=== PATIENT | male | born 1955 | race Caucasian/White ===

== ENCOUNTER 2020-08-12 07:31 | Outpatient (REF) | payer MEDICARE, MEDICAID, SELFPAY ==
[2020-08-12 11:06] LABS: MANUAL DIFF FLAG NO
[2020-08-12 11:43] LABS: Basophils Absolute Auto 0.1 X10*3/uL (0.0-0.2); Eosinophils Absolute Auto 0.3 X10*3/uL (0.0-0.4); Eosinophils Percent Auto 4.1 % (0-4); Hematocrit 48.5 % (42-52); Hemoglobin 15.7 g/dl (14.0-18.0); Imm Gran Abs Auto 0.03 X10*3/uL (0.00-0.03); Imm Gran Pct Auto 0.4 % (0.0-0.4); Lymphocytes Absolute Auto 1.3 X10*3/uL (1.2-4.9); Lymphocytes Percent Auto 18.9 % (20-40); Mean Corpuscular HGB Conc 32.4 g/dl (31.0-36.0); Mean Corpuscular Hemoglobin 29.7 pg (27.0-33.0); Mean Corpuscular Volume 91.7 fL (80-98); Monocytes Absolute Auto 0.7 X10*3/uL (0.1-1.2); Neutrophils Absolute Auto 4.5 X10*3/uL (2.0-8.3); Neutrophils Percent Auto 65.6 % (45-73); Platelet Count 182 X10*3/uL (160-400); Red Blood Count 5.29 X10*6/uL (4.60-5.80); Red Cell Distribution Width 13.5 % (11.0-16.0); White Blood Count 6.9 X10*3/uL (4.8-10.8)
[2020-08-12 12:20] LABS: Prostate Specific Antigen 0.49 ng/mL (<0.05-4.0); Vitamin D 25-OH Total 24.4 ng/mL (>30)
[2020-08-12 12:24] LABS: Alanine Aminotransferase 20 U/L (0-40); Albumin Level 4.5 g/dL (3.5-5.0); Alkaline Phosphatase 63 U/L (39-117); Anion Gap 12 (12-20); Aspartate Amino Transferase 25 U/L (5-37); Bilirubin Total 0.9 mg/dL (0.0-1.0); Blood Urea Nitrogen 23 mg/dL (9-16); Calcium 9.3 mg/dL (8.4-10.2); Carbon Dioxide 27 mmol/L (22-29); Chloride 106 mmol/L (96-108); Cholesterol 235 mg/dL; Estimated Glomerular Filt Rate > 60; Glucose Fasting 80 mg/dL (60-99); HDL Cholesterol 39 mg/dL; LDL Cholesterol Calculated 159 mg/dl; Potassium 4.4 mmol/L (3.3-5.1); Sodium 141 mmol/L (135-145); Triglycerides 186 mg/dL
== END 2020-08-12 07:32 | disposition home or self-care (01) ==
LOC: HO.MANLDS 07:31
PROVIDERS: PCP Internal Medicine; Visit Provider Internal Medicine
DX: Z00.00 Encounter for general adult medical examination without abnormal findings (principal); E55.9 Vitamin D deficiency, unspecified; Z12.5 Encounter for screening for malignant neoplasm of prostate
CPT/HCPCS: 36415; 80053; 80061; 82306; 84153; 85025

== ENCOUNTER 2021-01-10 12:10 | Outpatient (REF) | payer MEDICARE, MEDICAID, SELFPAY ==
[2021-01-10 16:47] LABS: MANUAL DIFF FLAG NO
[2021-01-10 16:53] LABS: Basophils Absolute Auto 0.1 X10*3/uL (0.0-0.2); Basophils Percent Auto 1.1 % (0-2); Eosinophils Absolute Auto 0.2 X10*3/uL (0.0-0.4); Eosinophils Percent Auto 3.2 % (0-4); Hemoglobin 16.3 g/dl (14.0-18.0); Imm Gran Abs Auto 0.03 X10*3/uL (0.00-0.03); Imm Gran Pct Auto 0.5 % (0.0-0.4); Lymphocytes Absolute Auto 1.5 X10*3/uL (1.2-4.9); Lymphocytes Percent Auto 22.3 % (20-40); Mean Corpuscular HGB Conc 32.6 g/dl (31.0-36.0); Mean Corpuscular Hemoglobin 29.4 pg (27.0-33.0); Mean Corpuscular Volume 90.3 fL (80-98); Mean Platelet Volume 13.1 fL (9.4-12.4); Monocytes Absolute Auto 0.8 X10*3/uL (0.1-1.2); Monocytes Percent Auto 11.6 % (2-11); Neutrophils Percent Auto 61.3 % (45-73); Platelet Count 177 X10*3/uL (160-400); Red Blood Count 5.54 X10*6/uL (4.60-5.80); Red Cell Distribution Width 13.3 % (11.0-16.0); White Blood Count 6.5 X10*3/uL (4.8-10.8)
[2021-01-10 17:00] LABS: Alanine Aminotransferase 19 U/L (0-40); Albumin Level 4.7 g/dL (3.5-5.0); Alkaline Phosphatase 63 U/L (39-117); Amylase 211 U/L (28-100); Anion Gap 16 (12-20); Aspartate Amino Transferase 26 U/L (5-37); Bilirubin Total 0.7 mg/dL (0.0-1.0); Blood Urea Nitrogen 15 mg/dL (9-16); C Reactive Protein 0.09 mg/dL (< or = 0.50); Calcium 9.8 mg/dL (8.4-10.2); Carbon Dioxide 23 mmol/L (22-29); Chloride 108 mmol/L (96-108); Estimated Glomerular Filt Rate > 60; Glucose Random 83 mg/dL (60-115); Iron 176 mcg/dL (45-160); Lipase 125 U/L (8-78); Percent Iron Saturation 47 % (15-50); Potassium 4.5 mmol/L (3.3-5.1); Sodium 142 mmol/L (135-145); Total Iron Binding Capacity 378 mcg/dL (228-428); Total Protein 7.3 g/dL (6.5-8.0); Unsaturated Iron Binding 202 ug/dL
[2021-01-10 17:03] LABS: Estimated Average Glucose 114 mg/dL; Hemoglobin A1c % 5.6 %
[2021-01-10 17:20] LABS: Ferritin 89 ng/mL (20-250)
[2021-01-10 18:08] LABS: Erythrocyte Sedimentation Rate 2 MM/HR (0-15)
== END 2021-01-10 12:11 | disposition home or self-care (01) ==
LOC: HO.MANLDS 12:10
PROVIDERS: PCP Internal Medicine; Visit Provider Physician Assistant
DX: R19.7 Diarrhea, unspecified (principal)
CPT/HCPCS: 36415; 80053; 82150; 82728; 83036; 83540; 83690; 85025; 85652; 86140

== ENCOUNTER 2022-09-14 09:06 | Outpatient (REF) | payer MEDICARE, MEDICAID, SELFPAY ==
[2022-09-14 12:10] LABS: Hematocrit 47.6 % (42.0-52.0); Hemoglobin 15.6 g/dl (14.0-18.0); Mean Corpuscular HGB Conc 32.8 g/dl (31.0-36.0); Mean Corpuscular Hemoglobin 29.7 pg (27.0-33.0); Mean Corpuscular Volume 90.5 fL (80.0-98.0); Mean Platelet Volume 12.9 fL (9.4-12.4); Platelet Count 181 X10*3/uL (160-400); Red Blood Count 5.26 X10*6/uL (4.60-5.80); Red Cell Distribution Width 13.4 % (11.0-16.0); White Blood Count 5.3 X10*3/uL (4.8-10.8)
[2022-09-14 12:58] LABS: Alanine Aminotransferase 22 U/L (0-40); Albumin Level 4.4 g/dL (3.5-5.0); Alkaline Phosphatase 57 U/L (39-117); Anion Gap 11 (12-20); Aspartate Amino Transferase 26 U/L (5-37); Bilirubin Total 0.9 mg/dL (0.0-1.0); Blood Urea Nitrogen 15 mg/dL (9-16); Calcium 9.1 mg/dL (8.4-10.2); Carbon Dioxide 27 mmol/L (22-29); Chloride 109 mmol/L (96-108); Cholesterol 233 mg/dL; Estimated Glomerular Filt Rate > 60; Glucose Fasting 90 mg/dL (60-99); HDL Cholesterol 38 mg/dL; LDL Cholesterol Calculated 167 mg/dl; Potassium 4.9 mmol/L (3.3-5.1); Sodium 142 mmol/L (135-145); Total Protein 6.6 g/dL (6.5-8.0); Triglycerides 144 mg/dL
[2022-09-14 13:01] LABS: Prostate Specific Antigen 0.87 ng/mL (<0.05-4.0); Thyroid Stimulating Hormone 1.49 uIU/mL (0.32-4.0); Vitamin D 25-OH Total 33.6 ng/mL (>30)
== END 2022-09-14 09:07 | disposition home or self-care (01) ==
LOC: HO.MANLDS 09:06
PROVIDERS: Visit Provider Internal Medicine
DX: Z12.5 Encounter for screening for malignant neoplasm of prostate (principal); E78.00 Pure hypercholesterolemia, unspecified; E03.9 Hypothyroidism, unspecified; E55.9 Vitamin D deficiency, unspecified
CPT/HCPCS: 36415; 80053; 80061; 82306; 84153; 84443; 85027

== ENCOUNTER 2023-09-17 08:03 | Outpatient (REF) | payer MEDICARE, MEDICAID, SELFPAY ==
[2023-09-17 12:54] LABS: MANUAL DIFF FLAG NO
[2023-09-17 13:02] LABS: Basophils Absolute Auto 0.1 X10*3/uL (0.0-0.2); Basophils Percent Auto 1.1 % (0-2); Eosinophils Absolute Auto 0.2 X10*3/uL (0.0-0.4); Eosinophils Percent Auto 4.2 % (0-4); Hematocrit 48.7 % (42.0-52.0); Hemoglobin 15.9 g/dl (14.0-18.0); Imm Gran Abs Auto 0.04 X10*3/uL (0.00-0.03); Imm Gran Pct Auto 0.7 % (0.0-0.4); Lymphocytes Absolute Auto 1.1 X10*3/uL (1.2-4.9); Lymphocytes Percent Auto 19.9 % (20-40); Mean Corpuscular HGB Conc 32.6 g/dl (31.0-36.0); Mean Corpuscular Hemoglobin 29.6 pg (27.0-33.0); Mean Corpuscular Volume 90.5 fL (80.0-98.0); Mean Platelet Volume 12.7 fL (9.4-12.4); Monocytes Absolute Auto 0.6 X10*3/uL (0.1-1.2); Monocytes Percent Auto 10.1 % (2-11); Neutrophils Absolute Auto 3.5 x10*3/uL (2.0-8.3); Platelet Count 165 X10*3/uL (160-400); Red Blood Count 5.38 X10*6/uL (4.60-5.80); Red Cell Distribution Width 13.3 % (11.0-16.0); White Blood Count 5.5 X10*3/uL (4.8-10.8)
[2023-09-17 13:16] LABS: Estimated Average Glucose 111 mg/dL; Hemoglobin A1c % 5.5 % (<6.0)
[2023-09-17 13:36] LABS: Prostate Specific Antigen 0.44 ng/mL (<0.05-4.0)
[2023-09-17 13:44] LABS: Alanine Aminotransferase 24 U/L (0-40); Albumin Level 4.4 g/dL (3.5-5.0); Alkaline Phosphatase 54 U/L (39-117); Anion Gap 11 (12-20); Aspartate Amino Transferase 29 U/L (5-37); Bilirubin Total 0.7 mg/dL (0.0-1.0); Blood Urea Nitrogen 17 mg/dL (9-16); Calcium 9.3 mg/dL (8.4-10.2); Carbon Dioxide 27 mmol/L (22-29); Chloride 109 mmol/L (96-108); Cholesterol 216 mg/dL (<200); Estimated Glomerular Filt Rate > 60; Free T4 (Free Thyroxine) 1.04 ng/dL (0.71-1.85); Glucose Random 81 mg/dL (60-115); HDL Cholesterol 38 mg/dL (>40); LDL Cholesterol Calculated 147 mg/dL (<100); Potassium 4.4 mmol/L (3.3-5.1); Sodium 143 mmol/L (135-145); Thyroid Stimulating Hormone 2.26 uIU/mL (0.32-4.0); Total Protein 7.2 g/dL (6.5-8.0); Triglycerides 158 mg/dL (<150)
== END 2023-09-17 08:04 | disposition home or self-care (01) ==
LOC: HO.MANLDS 08:03
PROVIDERS: Visit Provider Internal Medicine
DX: Z00.00 Encounter for general adult medical examination without abnormal findings (principal); Z12.5 Encounter for screening for malignant neoplasm of prostate; E78.00 Pure hypercholesterolemia, unspecified; E03.9 Hypothyroidism, unspecified; E88.810 Metabolic syndrome
CPT/HCPCS: 36415; 80053; 80061; 83036; 84153; 84439; 84443; 85025

== ENCOUNTER 2024-09-14 08:24 | Outpatient (REF) | payer MEDICARE, MEDICAID, SELFPAY ==
[2024-09-14 14:07] LABS: Estimated Average Glucose 117 mg/dL; Hemoglobin A1C 151.3441 umol/L; Hemoglobin A1c % 5.7 % (<6.0)
[2024-09-14 14:19] LABS: Alanine Aminotransferase 30 U/L (0-40); Albumin Level 4.2 g/dL (3.5-5.0); Alkaline Phosphatase 52 U/L (39-117); Anion Gap 10 (12-20); Aspartate Amino Transferase 28 U/L (5-37); Bilirubin Total 0.7 mg/dL (0.0-1.0); Blood Urea Nitrogen 16 mg/dL (9-16); Calcium 8.8 mg/dL (8.4-10.2); Carbon Dioxide 27 mmol/L (22-29); Chloride 109 mmol/L (96-108); Cholesterol 205 mg/dL (<200); Estimated Glomerular Filt Rate > 60; Glucose Random 80 mg/dL (60-115); HDL Cholesterol 34 mg/dL (>40); LDL Cholesterol Calculated 129 mg/dL (<100); Potassium 4.1 mmol/L (3.3-5.1); Sodium 142 mmol/L (135-145); Total Protein 6.7 g/dL (6.5-8.0); Triglycerides 210 mg/dL (<150)
[2024-09-14 15:04] LABS: Thyroid Stimulating Hormone 2.76 uIU/mL (0.32-4.0)
[2024-09-14 15:38] LABS: T4 Thyroxine 7.6 ug/dL (4.5-12.0)
[2024-09-14 18:43] LABS: MANUAL DIFF FLAG NO
[2024-09-14 18:47] LABS: Basophils Absolute Auto 0.1 X10*3/uL (0.0-0.2); Basophils Percent Auto 0.9 % (0-2); Eosinophils Absolute Auto 0.2 X10*3/uL (0.0-0.4); Eosinophils Percent Auto 3.2 % (0-4); Hematocrit 46.5 % (42.0-52.0); Hemoglobin 14.9 g/dl (14.0-18.0); Imm Gran Abs Auto 0.03 X10*3/uL (0.00-0.03); Imm Gran Pct Auto 0.5 % (0.0-0.4); Lymphocytes Absolute Auto 1.2 X10*3/uL (1.2-4.9); Lymphocytes Percent Auto 21.8 % (20-40); Mean Corpuscular Hemoglobin 29.1 pg (27.0-33.0); Mean Corpuscular Volume 90.8 fL (80.0-98.0); Mean Platelet Volume 12.7 fL (9.4-12.4); Monocytes Absolute Auto 0.6 X10*3/uL (0.1-1.2); Monocytes Percent Auto 10.3 % (2-11); Neutrophils Absolute Auto 3.6 x10*3/uL (2.0-8.3); Neutrophils Percent Auto 63.3 % (45-73); Platelet Count 179 X10*3/uL (160-400); Red Blood Count 5.12 X10*6/uL (4.60-5.80); Red Cell Distribution Width 13.6 % (11.0-16.0); White Blood Count 5.7 X10*3/uL (4.8-10.8)
== END 2024-09-14 08:25 | disposition home or self-care (01) ==
LOC: HO.MANLDS 08:24
PROVIDERS: Visit Provider Internal Medicine
DX: Z00.00 Encounter for general adult medical examination without abnormal findings (principal); E03.9 Hypothyroidism, unspecified; Z13.6 Encounter for screening for cardiovascular disorders; Z12.11 Encounter for screening for malignant neoplasm of colon; Z13.1 Encounter for screening for diabetes mellitus
CPT/HCPCS: 36415; 80053; 80061; 83036; 84436; 84443; 85025

== ENCOUNTER 2025-05-12 10:23 | Outpatient (REF) | payer MEDICARE, MEDICAID, SELFPAY ==
--- OUTSIDE RECORDS SUMMARY | 2025-05-12 12:19 | XMS_ITS | Encounter Summary ---
Author Organization [facility] Address [address] [place] [address] Phone Care Team Providers Care Chief Information Security Officer Name Role Phone Deuce Aranda DO Primary Care Provider [phone] Encounter Details Date Type Department Care Team (Late st Contact Info) Description 04/25/2021 Procedure Pass [facility] Endoscopy Admitting Dept Virtual Department [address] [place] [address] Social History Tobacco Use Types Packs/Day Years Used Date Smoking Tobacco: Never Smokeless Tobacco: Never Alcohol Use Standard Drinks/Week Comments Yes 1 (1 standard drink = 0.6 oz pur e alcohol) social occ Sex and Gender Information Value Date Recorded Sex Assigned at Male 11/14/2019 12:39 PM EDT Legal Sex Male 9:53 PM EDT Gender Identity Male 11/14/2019 12:39 PM EDT Sexual Orientation Straight 11/14/2019 12 :39 PM EDT documented as of this encounter Plan of Treatment Not on file documented as of this encounter Visit Diagnoses Not on filedocumented in this encounter Care Teams Chief Information Security Officer Relationship Specialty Start Date End Date Deuce Aranda DO PCP - General Internal Medicine 08/29/17 documented as of this encounter Additional Source Comments The information contained in this document represents components of the legal health record. It is not the complete legal health record.[facility]
--- OUTSIDE RECORDS SUMMARY | 2025-05-12 12:19 | XMS_ITS | Encounter Summary ---
Author Organization [facility] Address [address] [place] [address] Phone Care Team Providers Care Nuclear Process Engineer Name Role Phone Deuce Aranda DO Primary Care Provider [phone] Deuce Aranda DO Unavailable Encounter Details Date Type Department Care Team (Late st Contact Info) Description 11/20/[address] [facility] [address] [place] [id number] Social History Tobacco Use Types Packs/Day Years [...] on filedocumented in this encounter Care Teams Nuclear Process Engineer Relationship Specialty Start Date End Date Deuce Aranda DO [email or web address] PCP - General Internal Medicine 08/29/17 Deuce Aranda DO [address] [place] [address] [email or web address] Insurance Assigned Provider 11/21/19 11/20/20 documented as of this encounter Additional Source Comments The information contained in this document represents components of the legal health record. It is not the complete legal health record.[facility]
--- OUTSIDE RECORDS SUMMARY | 2025-05-12 12:19 | XMS_ITS | Encounter Summary ---
Author Organization [facility] Address [address] [place] [address] Phone Care Team Providers Care Telecasting Technician Name Role Phone Deuce Aranda Primary Care Provider [phone] JassiDeuce sneed Unavailable Encounter Details Date Type Department Care Team (Late st Contact Info) Description 08/29/2017 Ancillary Orders [facility], X-Ray - [facility] [address] [place] [address] Lela Schultz, COMIC BOOK DESIGNER [address] [place] [address] [email or web address] Pain in both lower extremities Social History Tobacco Use Types Packs/Day Years Used Date Smoking Tobacco: Never Assessed Sex and Gender Information Value Date Recorded Sex Assigned at Male 11/14/2019 12:39 PM EDT Legal Sex Male 9:53 PM EDT Gender Identity Male 11/14/2019 12:39 PM EDT Sexual Orientation Straight 11/14/2019 12 :39 PM EDT documented as of this encounter Plan of Treatment Not on file documented as of this encounter Results * XR LUMBOSACRAL SPINE 4 OR MORE VIEWS (08/29/2017 9:03 AM EDT) Anatomical Region Laterality Modality L-spine Radiographic Aurea ging 08/29/2017 9:17 AM EDT Impressions 08/29/2017 9:24 AM EDT Chronic bilateral L5 spondylolysis with progressive anterolisthesis of L5 relative to both L4 and S1 since 2007. Slightly progressive retrolisthesis of L1 relative to L2. No acute bony changes. POS [id number] Narrative 08/29/2017 9:24 AM EDT 7 views. Compared to 01/12/2008 and 01/19/2008. Chronic bilateral L5 spondylolysis and about 13 mm of anterolisthesis has progressed from about 10 mm in 2008. About 5 mm of retrolisthesis of L4 on L5 is also increased as L5 moves forward from about 2 mm in 2008 now about 5 mm. 4-5 mm of retrolisthesis of L1 on L2 has increased from about 3 mm. The other vertebral bodies are well-aligned. Severe narrowing of the L1-2 and L5-S1 discs minimally progressed if changed at all. Mild narrowing of all the other disks minimally progressed. No compression fracture or other bony injuries No evidence of metastatic disease Procedure Note Codey Vaughn MD - 08/29/2017 7 views. Compared to 01/12/2008 and 01/19/2008. Chronic bilateral L5 spondylolysis and about 13 mm of anterolisthesis hasprogressed from about 10 mm in 2008. About 5 mm of retrolisthesis of L4 on L5 is also increased as L5 movesforward from about 2 mm in 2008 now about 5 mm. 4-5 mm of retrolisthesis of L1 on L2 has increased from about 3 mm. The other vertebral bodies are well-aligned. Severe narrowing of the L1-2 and L5-S1 discs minimally progressed ifchanged at all. Mild narrowing of all the other disks minimally progressed. No compression fracture or other bony injuries No evidence of metastatic disease IMPRESSION: Chronic bilateral L5 spondylolysis with progressive anterolisthesis of [id number] to both L4 and S1 since 2007. Slightly progressive retrolisthesisof L1 relative to L2. No acute bony changes. POS [id number] us Lela Schultz COMIC BOOK DESIGNER IMG XR SPINE Final Resul t documented in this encounter Visit Diagnoses Diagnosis Pain in both lower extremities Pain in both lower extremities documented in this encounter Care Teams Telecasting Technician Relationship Specialty Start Date End Date Deuce Aranda DO [email or web address] PCP - General Internal Medicine 08/29/17 Deuce Aranda DO [address] [place] [id number] [email or web address] Insurance Assigned Provider 11/21/19 11/20/20 documented as of this encounter Additional Source Comments The information contained in this document represents components of the legal health record. It is not the complete legal health record.[facility]
--- OUTSIDE RECORDS SUMMARY | 2025-05-12 12:19 | XMS_ITS | Encounter Summary ---
Author Organization [facility] Address [address] [place] [address] Phone Care Team Providers Care Flight Engineer Performance Qualified Name Role Phone Deuce Aranda DO Primary Care Provider [phone] Encounter Details Date Type Department Care Team (Late st Contact Info) Description 08/07/2021 Ancillary Orders Virtual Department [address] [place] [address] Deuce Aranda DO [address] [place] [place] [address] [place] [address] [email or web address] Other lesions of median nerve, right upper limb Social History Tobacco Use Types Packs/Day Years [...] as of this encounter Results * XR WRIST 3 OR MORE VIEWS (LEFT) (08/07/2021 9:10 AM EST) Anatomical Region Laterality Modality Wrist Left Computed Radiogr aphy 08/07/2021 9:20 AM EST Impressions 08/07/2021 9:23 AM EST No fracture or dislocation. Narrative 08/07/2021 9:23 AM EST XR WRIST 3 OR MORE VIEWS (LEFT) COMPARISON: Radiographs of the hand on April 03, 2016 FINDINGS: No fracture. Normal alignment. Normal joint spaces. No soft tissue swelling. Procedure Note Dawood Lozano MD - 08/07/2021 XR WRIST 3 OR MORE VIEWS (LEFT) COMPARISON: Radiographs of the hand on April 03, 2016 FINDINGS: No fracture. Normal alignment. Normal joint spaces. No soft tissueswelling. IMPRESSION: No fracture or dislocation. 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 It is not the complete legal health record.[facility]
--- OUTSIDE RECORDS SUMMARY | 2025-05-12 12:19 | XMS_ITS | Encounter Summary ---
Author Organization [facility] Address [address] [facility] [address] [place] [address] Phone Care Team Providers Care Manager Float Name Role Phone Deuce Aranda DO Primary Care Provider [phone] Deuce Aranda DO Unavailable Encounter Details Date Type Department Care Team (Latest Contact Info) Description 03/06/2018 Transcribe Orders [address] [address] Melisa Rubin [place] [address] [place] [address] . [employer] Routine general medical examination at a health care facility (Primary Dx) Social History Tobacco Use Types Packs/Day Years [...] documented as of this encounter Visit Diagnoses Diagnosis Routine general medical examination at a health care facility- Primary documented in this encounter Care Teams Manager Float Relationship Specialty Start Date End Date Deuce Aranda DO [email or web address] PCP - General Internal Medicine 08/29/17 Deuce Aranda DO [address] [place] [phone] [email or web address] Insurance Assigned Provider 11/21/19 11/20/20 documented as of this encounter Additional Source Comments The information contained in this document represents components of the legal health record. It is not the complete legal health record.[facility]
--- OUTSIDE RECORDS SUMMARY | 2025-05-12 12:19 | XMS_ITS | Clinical Summary ---
Author Organization [facility] Address [address] [facility] [address] [place] [address] Phone Care Team Providers Care Out Of School Hours Care Worker Name Role Phone Nancy Reed Primary Care Provider [phone] Allergies Active Allergy Reactions Criticality Noted Date Comments Ezetimibe Myalgia 09/04/2018 Other reaction(s): Myalgias (muscle pain) Atorvastatin Myalgia 09/04/2018 Lvxpugo-Gcn-Wpf Reductase Inhibitors Myalgia 09/04/2018 Other reaction(s): Myalgias (muscle pain) Medications levothyroxine (SYNTHROID, LEVOTHROID) 75 MCG tablet daily. Active melatonin 5 mg Tab 5mg PRN Active multivit-minera ls/ferrous fum (MULTI VITAMIN ORAL) Multi Vitamin 1 PO QD Active loratadine (CLARITIN) 10 mg tablet daily. Active magnesium 250 mg Tab Take 250 mg by mouth daily. 11/30/2019 Active rivaroxaban (XARELTO) 20 mg Tab Take 20 mg by mouth daily. 12/04/2019 Active Active Problems Problem Noted Date Diagnosed Date Flank hernia 11/20/2019 Hypothyroidism 09/04/2018 Hypercholesterolemia 09/04/2018 Metabolic syndrome X 09/04/2018 Deep vein thrombosis 09/04/2018 Diverticulitis 09/04/2018 Benign prostate hyperplasia 09/04/2018 Family History Medical History Relation Comments Cardiovascular disease Father COPD Mother Relation Status Comments Father Mother Social History Tobacco Use Types Packs/Day Years Used Date Smoking Tobacco: Never Smokeless Tobacco: Never Alcohol Use Standard Drinks/Week Comments Yes 1 (1 standard drink = 0.6 oz pur e alcohol) social occ Education Answer Date Recorded Are you interested in more education? Not on ava e 10/12/2022 Are you concerned about learning? Not on file 10/12/2022 No 10/12/2022 No 10/12/2022 Digital Access Answer Date Recorded No 11/10/2022 No 11/10/2022 Reliable internet access at home? Not on file 11/10/2022 Device with a working camera? Not on file Sex and Gender Information Value Date Recorded Sex Assigned at Male 11/14/2019 12:39 PM EDT Legal Sex Male 9:53 PM EDT Gender Identity Male 11/14/2019 12:39 PM EDT Sexual Orientation Straight 11/14/2019 12 :39 PM EDT Last Filed Vital Signs Vital Sign Reading Time Taken Comments Blood Pressure 127/80 04/25/2021 9:46 AM EST Pulse 71 04/25/2021 8:08 AM EST Temperature 36.2 C (97.2 F) 04/25/2021 9:32 AM EST Respiratory Rate 14 04/25/2021 9:46 AM EST Oxygen Saturation 94% 04/25/2021 9:46 AM EST Inhaled Oxygen Concentration - - Weight 83.9 kg (185 lb) 09/07/2021 8:06 AM EDT Height 177.8 cm (5' 10 ) 09/07/2021 8:06 AM EDT Body Mass Index 26.54 09/07/2021 8:06 AM EDT Plan of Treatment Health Maintenance Due Date Last Done Comments DEPRESSION SCREENING 1968 COLOGUARD 2001 FIT TEST 2001 FOBT 2001 SIGMOIDOSCOPY 2001 VIRTUAL COLONOSCOPY 2001 PNEUMOCOCCAL VACCINES (50+ years) (1 of 1 - PCV) 2006 TSH LEVEL 04/15/2019 04/15/2018, 08/29/2017 ZOSTER VACCINES (2 of 2) 02/18/2020 12/24/2019, 09/2019 CREATININE LEVEL 11/27/2020 11/28/2019, , 11/25/2019, Additional history exists LIPID PANEL 08/16/2024 08/17/2019, 04/15/2018 INFLUENZA VACCINE (#1) 2025 04/03/2016 COVID-19 VACCINE ( season) 2025 06/13/2021, 10/13/2020, 10/13/2020, Additional history exists Adult Td,Tdap Booster 08/18/2029 08/19/2019, 012 COLONOSCOPY 04/25/2031 04/25/2021 COLORECTAL CANCER SCREENING 04/25/2031 RSV VACCINE (1 - 1-dose 75+ series) 10/04/2031 HEPATITIS C SCREENING Completed 08/17/2019 SMOKING STATUS SCREENING (Once After 26 Yrs) Completed 09/07/2021 HEPATITIS A VACCINES Aged Out No long er eligible based on patient's age to complete this topic HIB VACCINES Aged Out No longer eligi ble based on patient's age to complete this topic MENINGOCOCCAL VACCINES (ACWY) Aged Out No longer eligible based on patient's age to complete this topic MENINGOCOCCAL VACCINES (B) Aged Out N o longer eligible based on patient's age to complete this topic Medical Devices Implanted Type Area Jewelry Manager Device Identifier Shelf Expiration Date Model / Serial / Lot Back Screws Mesh Parietex [id number] 8x12in Optimized Composite Rectangle - [id number] Implanted:Qty: 1 on 11/20/2019 by Johnny Franklin MD at [facility] Left: Abdomen COVIDIEN 04/16/2023 [id number] / / [id number] Procedures Procedure Name Priority Date/Time Associated Diagnosis Comments ENDOSCOPY, COLON 04/25/2021 8:56 AM EST BASIC METABOLIC PANEL (BMP) Routine 11/28/2019 5:18 AM EDT LIPID PANEL Routine 04/15/2018 7:46 AM EDT Pure hypercholesterolemi a Myxedema heart disease TSH WITH REFLEX Routine 04/15/2018 7:46 AM EDT Pure hypercholesterolemi a Myxedema heart disease from Last 3 Months or Most Recently Relevant to Health Maintenance Results * ENDOSCOPY, COLON (04/25/2021 8:56 AM EST) Narrative Transcriptions Jose Roberto Chaudhary MD - 04/25/2021 8:56 AM EST Patient Name: Kolton Dean Attending MD:: JOSE ROBERTO CHAUDHARY MD, Procedure Date: 04/25/2021 8:56 AM Date of : 1955 Age: 65 Admit Type: Outpatient Gender: Male Room: [place] [address] Referring MD: NANCY REED DO Exam Type: Colonoscopy Indications: Chronic diarrhea Medications: Monitored Anesthesia Care Procedure: Informed consent was obtained from the patient after discussion of the indications, limitations, alternatives, benefits, and risks of the procedure. Risks specifically discussed include but are not limited to medication reactions, missed lesions, bleeding, perforation, or the need for emergentsurgery. Throughout the procedure, the patient's bloodpressure, pulse, end-tidal CO2, and oxygen saturations were monitored continuously. The Olympus adult variable colonoscope [id number] #2was introduced through the anus and advanced to thececum, identified by appendiceal orifice and ileocecalvalve. The colonoscopy was performed without difficulty.The patient tolerated the procedure well. The quality of the bowel preparation was excellent. The quality ofthe bowel preparation was evaluated using the BBPS(Martin Bowel Preparation Scale) with scores of: Right Colon= 3, Transverse Colon = 3 and Left Colon = 3 (entire mucosa seen well with no residual staining, small fragments of stool or opaque liquid). The total BBPS score equals 9. Complications: No immediate complications. Estimated blood loss: Minimal. Findings: The perianal and digital rectal examinations were normal. Scattered small and large-mouthed diverticula were found in the sigmoid colon and ascending colon. Internal hemorrhoids were found during retroflexion. The hemorrhoids were mild. Biopsies for histology were taken with a coldforceps from the right colon and left colon for evaluationof microscopic colitis. The exam was otherwise normal throughout theexamined colon. Impression: - Diverticulosis in the sigmoid colon and in the ascending colon. - Internal hemorrhoids. - Biopsies were taken with a cold forceps from the right colon and left colon for evaluation of microscopic colitis. Recommendation: - Discharge patient to home. - Await pathology results. - Repeat colonoscopy in 10 years for screeningpurposes. JOSE ROBERTO CHAUDHARY MD, 04/25/2021 9:28:21 AM This report has been signed electronically. Number of Addenda: 0 Note Initiated On: 04/25/2021 8:56 AM Procedure Code(s): --- Professional --- 17811, Colonoscopy, flexible; with biopsy, single or multiple --- Technical --- 40010, Colonoscopy, flexible; with biopsy, single or multiple Diagnosis Code(s): --- Professional --- K64.8, Other hemorrhoids K52.9, Noninfective gastroenteritis and colitis, unspecified K57.30, Diverticulosis of large intestine without perforation or abscess without bleeding --- Technical --- K64.8, Other hemorrhoids K52.9, Noninfective gastroenteritis and colitis, unspecified K57.30, Diverticulosis of large intestine without perforation or abscess without bleeding CPT copyright 2018 [employer]. All rights reserved. The codes documented in this report are preliminary and upon slag mixer reviewmay be revised to meet current compliance requirements. Procedure Date: 04/25/2021 8:56:42 AM [address] [place] [address] us Nancy A Bigda DO GI PROCEDURE ORDERABLES Final Re sult * (ABNORMAL) Basic metabolic panel (11/28/2019 5:18 AM EDT) SODIUM 140 135 - 145 mmol/L [facility] POTASSIUM 3.9 3.4 - 5.0 mmol/L [facility] CHLORIDE 105 98 - 108 mmol/L [facility] CO2 24 23 - 32 mmol/L [facility] BUN 12 8 - 25 mg/dL [facility] CREATININE 0.91 0.60 - 1.50 mg/dL [facility] GLUCOSE 112(H) 70 - 110 mg/dL [facility] CALCIUM 8.4(L) 8.5 - 10.5 mg/dL [facility] EGFR 89 >59 mL/min/1. 73m2 [facility] Comment:If patient is black, multiply result by 1.159. Estimated glomerular filtration rate calculated using the CKD-EPI equation. ANION GAP 11 3 - 17 mmol/L [facility] Blood 11/28/2019 5:18 AM EDT 11/28/2019 5:30 AM EDT us Chrissy Perdomo GLOBAL RECRUITER LAB BLOOD BKR ORDERAB LES Final Result [address] [address] * (ABNORMAL) TSH with reflex (04/15/2018 7:46 AM EDT) TSH 4.33(H) 0.27 - 4.20 uIU/mL [facility] Blood 04/15/2018 7:46 AM EDT 04/15/2018 8:23 AM EDT us Lela Schultz PLANT WORKER LAB BLOOD BKR ORDERABLES Fi nal Result [facility] [address] [place] [address] * (ABNORMAL) Lipid panel (04/15/2018 7:46 AM EDT) HDL 37 mg/dL [facility] Comment: Interpretation: Risk Level Males Decreased >45 mg/dL Average 40-45 mg/dL Increased <40 mg/dL CHOLESTEROL 223 0 - 240 mg/dL [facility] TRIGLYCERIDES 221(H) 30 - 160 mg/dL [facility] LDL 142(H) 50 - 129 mg/dL [facility] Comment: LDL levels in terms of risk for coronary heart disease: <100 mg/dL: Optimal 100-129 mg/dL: Near or above optimal 130-159 mg/dL: Borderline high 160-189 mg/dL: High >190 mg/dL: Very High CARDIAC RISK RATIO 6.0(H) 3.4 - 5.0 [facility] Blood 04/15/2018 7:46 AM EDT 04/15/2018 8:23 AM EDT us Lela Schultz PLANT WORKER LAB BLOOD BKR ORDERABLES Fi nal Result [facility] [address] [place] [address] from Last 3 Months or Most Recently Relevant to Health Maintenance Insurance MEDICARE PART A & B [facility] MEDICARE PART A & B [place] [facility] [place] Advance Directives For more information, please contact: [phone] (9AM - 5PM [facility], Saturday-Saturday) Documents on File Type Date Recorded Patient Immunologist Expl anation Healthcare Proxy 12/02/2019 * Full Code (Confirmed) (Latest Code Status on File) Date Activated Date Inactivated Comments 11/20/2019 4:16 PM Question Answer Comments Code Status Confirmed With: Patient Code Status Communicated To: Inpatient Attending Care Teams Out Of School Hours Care Worker Relationship Specialty Start Date End Date Nancy Reed DO [email or web address] PCP - General Internal Medicine 08/29/17 Additional Source Comments The information contained in this document represents components of the legal health record. It is not the complete legal health record.[facility]
--- OUTSIDE RECORDS SUMMARY | 2025-05-12 12:19 | XMS_ITS | Data Portability ---
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 MUST MEET 2 OUT OF 3 ELEMENTS: PROBLEMS, DATA OR RISK ELEMENT 1: PROBLEMS ADDRESSED 1 OR MORE CHRONIC ILLNESS WITH EXACERBATION OR 2 OR MORE STABLE CHRONIC ILLNESSES OR 1 UNDIAGNOSED NEW PROBLEM OR 1 ACUTE ILLNESS W/SYMPTOMS OR 1 ACUTE COMPLICATED INJURY ELEMENT 2: DATA MUST MEET 1 OF 3 CATEGORIES CATEGORY 1: REVIEW OF PRIOR EXTERNAL NOTES, REVIEW OF RESULTS, ORDERING OF EACH TEST, ASSESSMENT REQUIRING INDEPENDENT HISTORIAN OR CATEGORY 2: INDEPENDENT INTERPRETATION OF TESTS BY ANOTHER PHYSICIAN OR SPECIALIST OR CATEGORY 3: DISCUSSION OF MGT OR TEST INTERPRETATION W/EXTERNAL PHYSICIAN OR SPECIALIST ELEMENT 3: RISK RISK OF COMPLICATIONS AND/OR MORBIDITY OR MORTALITY OF PATIENT MANAGEMENT PROVIDER MUST THOROUGHLY DOCUMENT EACH ELEMENT THAT IS COVERED Not available 01/16/2022 16:59:04 09/08/2024 09/08/2024 Patient presente d to office today for their Medicare Annual Wellness Visit. Education was provided on healthy nutrition, including a diet rich in fruits and vegetables, minimizing simple carbohydrates, salt, and saturated fats. Encouraged regular cardiovascular exercise such as walking at least 30 minutes daily, 5 times per week. Emphasized preventive health measures and educated pt on fall prevention and community-based lifestyle interventions to help reduce health risks and promote healthy living. Not available 09/08/2024 10:52:31 Plan of Treatment Reminders Order Date Submit Date Provider Last Modified By Organization Details Last Modified Time Details Appointments FOLLOW UP 15 2024 09:45A Malia REED Not available Not available Not available MEDICARE ANNUAL WELLNESS 2025 10:00A M DR REED Not available Not available Not available Lab lipid panel, blood 2024 025 [facility], [address] [place] [address], [id number], 09/15/2024 12:34:13 hemoglobi n, gastroint estinal, stool 2024 025 [facility], [address] [place] [address], [id number], 09/08/2024 11:15:31 TSH + free T4, serum 2024 025 [facility], [address] [place] [address], [id number], 09/15/2024 12:34:13 CBC w/ auto diff 2024 025 [facility], [address] [place] [address], [id number], 09/15/2024 12:34:13 CMP, serum or plasma 2024 025 [facility], [address] [place] [address], [id number], 09/15/2024 12:34:13 noninvasi ve colorecta l cancer DNA + occult blood screening , QL, stool - this was sent in june 20232023 024 [facility], [address], [address], [facility] [place], [address], 09/24/2023 10:07:47 lipid panel, blood 2023 024 [facility], [address] [place] [address], [id number], 09/18/2023 11:19:40 CMP, serum or plasma 2023 024 [facility], [address] [place] [address], [id number], 09/18/2023 11:19:40 CBC 2023 024 [facility], [address] [place] [address], [id number], 09/18/2023 11:19:41 HbA1c (hemoglob in A1c), blood 2023 024 [facility], [address] [place] [address], [id number], 09/03/2023 14:03:08 PSA, serum or plasma 2023 024 [facility], [address] [place] [address], [id number], 09/18/2023 11:19:40 TSH + free T4, serum 2023 024 [facility], [address] [place] [address], [id number], 09/10/2023 08:20:01 Referral dermatolo gist referral 2022 023 [email or web address] 10 Cheryle Montoya MD, [address], [place], [address], 08/22/2022 11:17:05 vascular surgeon referral 2021 022 [email or web address] 10 Richard Collins MD, [address] [place], [address], 01/22/2022 11:14:29 Procedures None recorded. Surgeries None recorded. Imaging None recorded. Medication Orders None recorded. Patient TargetsNo targets recorded. Patient Instructions Encounter Date Encounter Id Patient Instructions Last Modified By Organization Details Last Modified Time 01/16/2022 [id number] hypothyroidism: care instructions Not available 01/16/2022 17:07:56 benign prostatic hyperplasia: care instructions Not available 01/16/2022 17:07:56 09/08/2024 [id number] advance care planning: care instructions Not available 09/08/2024 10:54:24 Discussed and explained advance directives such as standard forms to the patient. Face to face discussion lasted for a duration of _45__ minutes. Not available 09/08/2024 10:56:47 Reason for Referral Vascular Surgeon Referral fo r Chronic deep venous thrombosis of thigh Referring Physician: Deuce Reed, Internal Medicine, Encounter Date: 01/16/2022 Test Conductor Referral for H istory of actinic keratosis Referring Physician: Deuce Reed, Internal Medicine, Encounter Date: 08/21/2022 Results Created Date Observation Date Name Description Value Unit Range Abnormal Flag Note LastModifiedBy Organization Detail LastModifiedTime Result Notes None recorded. Problems Name Problem SNOMED Code Status Onset Date Resolution Date Notes Provider Name and Address Organization Details Recorded Time Divertic ulitis 025655419 Active 2017 Tricia johns [facility] 8 15:05:29 Metaboli c syndrome X 545498170 Active 2017 Tricia johns [facility] 8 15:06:19 Hypothyr oidism 46300442 [facility] 15:06:49 Hypercho lesterol emia 92176464 Active 2017 Lela Schultz NP, S [address] [place] [address], [address], [facility] 8 10:14:14 Benign prostati c hyperpla kari 079174394 Active 2017 Lela Schultz NP, S [address] [place], [address], [facility] 8 11:06:55 Deep venous thrombos is of lower extremit y 165255567 Active 2017 s/p surgery- iliac vein rupture Lela Schultz NP, S [address] [place] [address], [address], [facility] 8 16:46:55 History of male erectile disorder 260039407 Active 2017 Lela Schultz NP, S [address] [place] [address], [address], [facility] 8 10:04:49 Postoper ative hemorrha ge 228568215 Active 2018 Deuce Reed, DO [address] [place] [address], [address], [facility] 9 10:15:09 Rupture of hernia of abdomina l wall 408495686 Active 2018 Deuce Reed, DO [address] [place] [address], [address], [facility] 9 10:32:57 Chronic deep venous thrombos is of thigh 58232531539 9104 Active 2021 Deuce Reed DO [address] [place] [address], [address], [facility] 2 17:00:54 Bilatera l carpal tunnel syndrome 20423990998 627064 Active 2024 Deuce Reed DO [address] [place] [address], [address], [facility] 5 10:56:06 Weakness of bilatera l lower limb Active 2024 Deuce Reed DO [address] [place] [address], [address], [facility] 5 10:07:06 Depresse d mood 912359208 Active 2024 Deuce Reed DO [address] [place] [address], [address], [facility] 5 10:13:42 Sebaceou s cyst of skin 266697594 Active 2024 Deuce Reed DO [address] [place] [address], [address], [facility] 5 10:14:58 Paresthe kari of hand 707667765 Active 2024 Deuce OzzieRoni Reed DO [address] [place] [address], [address], [facility] 5 10:16:53 Problem Notes None recorded. Procedures Surgical History Date Name Laterality Status Provider Name and Address Organization Details Recorded Time 09/24/19 24 Colonoscopy completed Azalia Cary [facility] 04/13/2024 11:35:37 12/05/19 20 Hernia repair w/mesh completed Deuce Reed [address], [address], [facility] 01/16/2022 16:25:47 02/08/20 18 Back Surgery completed Deuce Reed DO [address] [place] [address], [address], [facility] 01/16/2022 16:24:55 Oral surgery procedure completed Lela Schultz NP, S [address] [place] [address], [address], [facility] 01/31/2018 10:41:22 Imaging Results None recorded. Procedure Notes None recorded. Medical Equipment None Reported. Allergies Allergen ID Allergen Name Allergen Category Reaction Reaction Severity Criticality Documentation Date Start Date Code Code System Note Provider Name and Address Organization Details Recorded Time 75404 ezetimibe medicatio n myalgias (muscle pain) Not available Not available 05/12/20252018 98355 8 RxNorm Other react ion(s ): Myalg ias (musc le pain) Not Available [employer] - prod 5 03:23:17 62254 atorvasta tin medicatio n myalgias (muscle pain) Not available Not available 05/12/20252018 49376 RxNorm Not Available [employer] - prod 03:23:17 748 Zetia medicatio n myalgias (muscle pain) Not available Not available 09/11/2017 88565 9 RxNorm Tricia Alas [facility] 8 15:04:16 749 Product containin g 3-hydroxy -3-methyl glutaryl- coenzyme A reductase inhibitor (product) medicatio n myalgias (muscle pain) Not available Not available 09/11/2017 58483 009 SNOMED Tricia johns [facility] 8 15:04:24 750 Lipitor medicatio n myalgias (muscle pain) Not available Not available 09/11/2017 70976 5 RxNorm Tricia johns [place] [facility] 8 15:04:31 Medications Name Sig Start Date Stop Date Status Note LastModified by Organization Details LastModified Time prednisone 10 mg tablet Take 1 tablet every day by oral route as directed for 8 days. 12/03 completed Not Available Not Available Not Available sildenafil 50 mg tablet Take 1 tablet every day by oral route for 90 days. 01/16 completed Not Available Not Available Not Available Claritin 10 mg tablet Take 1 tablet every day by oral route. active Not Available Not Available No t Available fluorouraci l 5 % topical cream APPLY THIN LAYER TOPICALLY TO THE AFFECTED AREA OF SCALP TWICE DAILY FOR 3 WEEKS active Not Available Not Available No t Available levothyroxi ne 75 mcg tablet TAKE 1 TABLET DAILY 2024 active Not Available Not Available Not Avai lable DOK 100 mg capsule TAKE 1 C PO D 07/28 completed Not Available Not Available Not Available levothyroxi ne 50 mcg tablet TAKE 1 TABLET BY MOUTH DAILY 10/22 completed Not Available Not Available Not Available warfarin 5 mg tablet Take 1 tablet daily as directed by you PCP 09/01 completed Not Available Not Available Not Available Baby Aspirin 81 mg chewable tablet Chew 1 tablet every day by oral route. 10/22 completed Not Available Not Available Not Available gabapentin 100 mg capsule TAKE 1 C PO Q 8 HOURS 07/28 completed Not Available Not Available Not Available warfarin 1 mg tablet TAKE 1 TABLET BY MOUTH EVERY DAY DIRECTED 09/01 completed Not Available Not Available Not Available Lovenox 60 mg/0.6 mL subcutaneou s syringe Inject 0.6 mL every day by subcutane ous route for 3 days. 12/03 completed Not Available Not Available Not Available finasteride 5 mg tablet TAKE 1 TABLET BY MOUTH EVERY DAY 04/08 completed Not Available Not Available Not Available oxycodone 5 mg tablet TAKE 1 T PO Q 4 HOURS PRF MODERATE PAIN 01/10 completed Not Available Not Available Not Available Asprin Ec Low Dose 81 mg tablet,bernard yed release Take 1 tablet every day by oral route. active Not Available Not Available No t Available melatonin 5mg PRN 10/22 completed Not Available Not Available Not Available Colace after surgery 12/03 completed Not Available Not Available Not Available nabumetone 500mg once a day if need for back pain 03/10 completed Not Available Not Available Not Available Tylenol PRN active Not Available Not Avail able Not Available gabapentin sort term after surgery 12/03 completed Not Available Not Available Not Available Allergy Relief (cetirizine ) 1 PO QD 04/03 completed Not Available Not Available Not Available glucosamine 375 mg-chondroi t-msm no1 500 mg-C 15 mg-julián 0.5 mg tablet Take 2 tablets every day by oral route. active Not Available Not Available No t Available glucosamine -condroitin -dhpf392 2 tablets daily 07/28 completed Not Available Not Available Not Available Xarelto 10 mg tablet Take 1 tablet every day by oral route. 09/01 completed Not Available Not Available Not Available Xarelto 20 mg tablet TAKE 1 TABLET BY MOUTH DAILY IN THE EVENING FOR 7 DAYS WITH THE EVENING MEAL 09/02 completed Not Available Not Available Not Available Multi Vitamin 1 PO QD active Not Available Not Available Not Available magnesium 200 mg (as magnesium oxide) chewable tablet Take 1 tablet every day by oral route. active Not Available Not Available No t Available Vitals Date Recorded Body height Body mass index (BMI) Body weight Heart rate Oxygen saturation Systolic And Diastolic Provider Name and Address Organization Details Last Updated DateTime 3 175.26 cm 26.7 kg/m2 93032.4 2 g 64 /min 98 % 112/60 mm[Hg] Deuce Reed, DO [address] [place], [address] [place], [place] - [facility] 3 09:30:34 Date Recorded Body height Body mass index (BMI) Body weight Heart rate Oxygen saturation Systolic And Diastolic Provider Name and Address Organization Details Last Updated DateTime 4 175.26 cm 27 kg/m2 18548.4 g 70 /min 97 % 120/80 mm[Hg] Krista Burger [facility] 4 13:27:58 Date Recorded Body height Body mass index (BMI) Body weight Heart rate Oxygen saturation Systolic And Diastolic Provider Name and Address Organization Details Last Updated DateTime 5 175.26 cm 27.6 kg/m2 15709.1 3 g 65 /min 98 % 138/86 mm[Hg] Azalia Cary [facility] 5 10:38:08 Date Recorded Body height Body mass index (BMI) Body weight Heart rate Oxygen saturation Systolic And Diastolic Provider Name and Address Organization Details Last Updated DateTime 2 175.26 cm 27.1 kg/m2 87832.9 2 g 63 /min 98 % 124/68 mm[Hg] Deuce Reed, DO [address] [place], [address], [facility] 2 16:28:55 Date Recorded Body height Body mass index (BMI) Body weight Heart rate Oxygen saturation Systolic And Diastolic Provider Name and Address Organization Details Last Updated DateTime 5 175.26 cm 27.7 kg/m2 20499.9 3 g 73 /min 95 % 138/70 mm[Hg] Enid Guzman [facility] 5 09:43:34 Social History Question Answer Notes LastModified by [employer] Details LastModified Time Tobacco Smoking Status Never Smoker Not Available [facility] 04/19/2020 03:36:23 What Is Your Level Of Caffeine Consumption? Occasional 1 Cup Coffee Per Day [id number] Information not available 04/19/2020 What Was The Date Of Your Most Recent Tobacco Screening? 05/12/2025 [email or web address] Information not available 05/12/2025 Sex: Male Functional Status Question Answer Note LastModified by [employer] Details LastModified Time Do you or have you ever used any other forms of tobacco or nicotine? No Information not available 08/21/2022 What is your level of alcohol consumption? Occasional [id number] Information not available 04/19/2020 What is your exercise level? None PT twice a week [id number] Information not available 04/19/2020 Mental Status None recorded. Family History Relationship Description Onset Age of this Age Resolved Age Notes LastModified by Organization Details LastModified Time Father Disorder of cardiovascul ar system [email or web address] Not available 2024 09:59:25 Mother Chronic obstructive pulmonary disease 83 [email or web address] Not available 2017 10:41:03 Medical History Condition Response Coronary Artery Disease N Gout N Kidney Stones N Blood Diseases N Hyperthyroidism N Blood Transfusion N Hypothyroidism Y Lung Disease N COPD N Defects or Inherited Disease N Difficulty Swallowing N Meniere's disease N Anxiety Disorder N Muscle, Joint, or Bone Problems N Obesity N Arthritis Y Polyps N Mental Disorder N Cancer N Stroke N Varicosities N Bladder or Kidney Problems Y High Cholesterol Y Liver Disease N Fibromyalgia N Headaches Y Kidney Disease N Allergies/Hayfever Y Heart Problems N Hospitalizations N Thyroid Problems Y GI Problems N Eating Disorder N Skin Problems Y Anemia N Constipation Y Mental Illness N Diabetes N Seizures/Epilepsy N Tuberculosis N Congestive Heart Failure (CHF) N Eczema N Abuse/Domestic Violence N Diverticulitis Y Asthma N Reflux/GERD N Hepatitis N Heart Disease N Pulmonary Embolism N Chronic Ear Infections N Hypertension N Chicken Pox Y Autism Spectrum Disorder (ASD) N Immunizations Vaccine Type Date Status Note Provider Nam e and Address Organization Details Recorded Time COVID-19, mRNA, LNP-S, PF, 30 mcg/0.3 mL dose 1 completed Petra Gencarelle [facility] 08/21/2022 09:16:50 COVID-19, mRNA, LNP-S, PF, 30 mcg/0.3 mL dose 1 completed Petra Gencarelle [facility] 08/21/2022 09:16:50 Tdap 0 completed Not Available [facility] 04/25/2021 15:01:20 zoster, unspecified formulation 0 completed Petra Gencarelle [facility] 08/21/2022 09:16:50 Tdap 2 completed Not Available [facility] 04/25/2021 15:01:20 COVID-19, mRNA, LNP-S, PF, 30 mcg/0.3 mL dose completed Petra Romero [facility] 08/21/2022 09:16:50 Past Encounters Encounter ID Performer Location Encounter Start Date Encounter Closed Date Diagnosis/Indication Diagnosis SNOMED-CT Code Diagnosis ICD10 Code Diagnosis IMO Codes Diagnosis Note [id number] Deuce Reed [facility] [address] [place] [address] 09/24/2017 09:16:25 09/24/2017 11:42:10 On examination - skin lesion 201098139 L98.9 Hypercholesterolemia 136 84863 E78.00 labs Jun 2017 ldl 111 Hypothyroidism 75935016 E03.9 levels WNL Venous varices 457533015 I83.92 reviewed Stenosis o f spinal 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 751056072 M99.59 MRI faxed [id number] Deuce Reed [facility] [address] [place] [address] 01/28/2018 10:01:17 01/28/2018 12:18:50 Hypercholesterolemia 34348176 E78.00 Hypothyroidism 44479484 E03.9 Acute low back pain 2788 89022 M54.5 awaiting surgery Benign pro static hyperplasia 884714592 N40.1 Screening procedure 2012 5006 Z13.9 [id number] Deuce Reed [facility] [address] [place] [address] 01/31/2018 10:14:56 01/31/2018 12:34:24 Pre-surgery evaluation 706705833 Z01.818 cleared for surgery Hypercholesterolemia 136 01400 E78.00 reviewed niacin, pt intolerant statins Hypothyroidism 49530555 E03.9 stable, follow Benign pro static hyperplasia 348184555 N40.1 new to genna sánchez [id number] Deuce Reed [facility] [address] [place] [address] 03/10/2018 14:47:52 03/10/2018 17:01:13 Deep venous thrombosis of lower extremity 536170685 I82.402 INR 1.9, continue 6 mg coumadin, recheck Retroperit herron hematoma 534105357 K66.1 follow in office in 1 week Edema of l ower extremity 807410680 R60.0 Active or passive immunization 934214180 Z23 will hold off on flu vaccine for a couple weeks [id number] Deuce Reed [facility] [address] [facility] [address] 03/17/2018 15:49:18 03/17/2018 16:36:24 Hypothyroidism 63862271 E03.9 stable, follow Deep venou s thrombosis of lower extremity 787711326 I82.402 INR 2.0, continue 6 mg coumadin, recheck tomorrow [id number] Deuce Reed [facility] [address] [facility] [address] 03/25/2018 14:22:26 03/25/2018 15:26:39 Deep venous thrombosis of lower extremity 545964491 I82.402 INR 3.2 today- decrease to 5mg mg coumadin, recheck Saturday [id number] Deuce Reed [facility] [address] [facility] [address] 04/08/2018 13:18:47 04/11/2018 08:58:32 Hypercholesterolemia 77254231 E78.00 Hypothyroidism 43927062 E03.9 stable, follow Deep venou s thrombosis of lower extremity 269568417 I82.402 INR 2.0 to alt. 5mg with 6 mg and recheck Saturday Benign pro static hyperplasia 932198640 N40.1 D/C finasterid e On examina tion - skin lesion 987636713 L98.9 [id number] Deuce Reed [facility] [address] [facility] [address] 04/22/2018 09:06:36 04/22/2018 11:28:05 Adult health examination 511167193 Z00.00 main prob is the left leg where he had the clot and this leg aches and is still causing lymphedema of the left leg Active or passive immunization 869817162 Z23 Primary er ectile dysfunction 415267102 N52.9 [id number] Deuce Reed [facility] [address] [facility] [address] 05/06/2018 09:13:56 05/06/2018 15:43:24 Deep venous thrombosis of lower extremity 731887987 I82.402 INR 2.0, continue 5 mg recheck Saturday Hypothyroidism 79916679 E03.9 stable, follow Benign pro static hyperplasia 792639422 N40.1 [place] [id number] Deuce Reed [facility] [address] [facility] [address] 05/27/2018 08:54:18 05/27/2018 13:38:52 History of male erectile disorder 348798483 Z87.438 prn viagra Edema of l ower extremity 934845799 R60.0 continue compressio n stockings and exercise Deep venou s thrombosis of lower extremity 068280068 I82.402 await todays results INR [id number] Deuce Reed [facility] [address] [facility] [address] 06/24/2018 08:52:26 06/24/2018 09:34:04 Deep venous thrombosis of lower extremity 066179851 I82.402 recheck INR 06/27/18 do not wait until 07/04/18 Hypercholesterolemia 136 55327 E78.00 to trial niacin at hs Hypothyroidism 83529211 E03.9 stable, follow History of male erectile disorder 125092151 Z87.438 prn viagra [id number] Deuce Reed [facility] [address] [facility] [address] 08/20/2018 09:03:26 08/20/2018 10:45:37 Hernia of anterior abdominal wall 009359287 K43.9 Deep venou s thrombosis of lower extremity 005896477 I82.402 check INR, if less than 3, will transition to 15 mg xarelto Hypercholesterolemia 136 13265 E78.00 Hypothyroidism 69128394 E03.9 stable, follow Deuce Reed [facility] [address] [facility] [address] 10/22/2018 09:13:18 10/22/2018 11:26:16 Deep venous thrombosis of lower extremity 194251395 I82.402 tolerating xarelto Hypercholesterolemia 136 80664 E78.00 follow Radiology result abnormal 236280116 R93.89 left abdominal wall, keep f/u appts w/speciali sts [id number] Deuce Reed DO [facility] [address] [facility] [address] 04/03/2019 09:49:47 04/03/2019 10:55:43 Deep venous thrombosis of lower extremity 954659645 I82.409 chronicall y on anticoag now for life has collateral s for the blocked iliac vein Hypothyroidism 26665512 E03.9 rechk in tsh Anterior a bdominal wall mass 432816037 R19.09 will need to refer to [facility] [id number] Deuce Reed DO [facility] [address] [facility] [place] [address] 08/07/2019 14:20:30 08/07/2019 15:04:02 Adult health examination 885274076 Z00.01 doing well overall certainly needs a hernia reduction procedure Active or passive immunization 133449569 Z23 Pruritic rash [id number] L 28.2 [id number] Deuce Reed DO [facility] [address] [facility],[place] [address] 12/04/2019 11:10:38 12/04/2019 12:06:11 Deep venous thrombosis of lower extremity [id number] I82.409 chronicall y on anticoag now for life but they told him to stop in the hosp we will revisit this as time goes on for now he is still off the xarelto per the hospital drs recc Hernia of abdominal wall [id number] K43.6 will attempt to remove drain next week if volume is less 20cc daily 52914 Deuce Reed DO [facility] [address] [facility] [address] 12/07/2019 14:36:30 12/07/2019 15:51:16 Postoperative hemorrhage 704008841 M96.830 drain removed without difficulty [id number] Deuce Reed DO [facility] [address] [facility],[place] [address] 08/09/2020 08:44:54 08/09/2020 10:57:14 Active or passive immunization [id number] Z23 covid not obtained yet shingles done last year Adult heal th examination 558980687 Z00.00 doing well overall certainly needs a hernia reduction procedure Vitamin D deficiency 347 09386 E55.9 [place] [address] Deuce Reed [facility] [address] [facility],[place] [address] 01/10/2021 11:33:37 01/10/2021 12:06:44 Diarrhea 85994083 R19.7 will fu with fu diarrhea work up Ulnar nerv e entrapment at elbow 258912514 G56.23 will hold off with referral for now and work on diarrhea work up Memory impairment 960271 006 R41.3 will have GF pay attension and see if it happens more frequently 60362 Deuce Reed [facility] [address] 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 [address] 08/15/2021 08:55:11 08/15/2021 09:42:52 Active or passive immunization 571445491 Z23 covid not obtained yet shingles done last year Adult heal th examination 227659937 Z00.00 doing well overall certainly needs a hernia reduction procedure Hypothyroidism 31908860 E03.9 [place]chk in tsh 41518 Deuce Reed [facility] [address] [facility] [place] [address] 01/16/2022 16:03:42 01/16/2022 17:09:18 Active or passive immunization 679650545 Z23 will consider pneumonia shots Chronic de ep venous thrombosis of thigh 1606525467 67135 I82.5Y9 we will get him referred to a vascular Hypothyroidism 28827528 E03.9 rechk in tsh Deep venou s thrombosis of lower extremity 240249559 I82.409 chronicall y on anticoag now for life but they told him to stop in the hosp we will revisit this as time goes on for now he is still off the xarelto per the hospital drs recc Benign pro static hyperplasia 386066131 N40.1 42932 Deuce Reed, [facility] [address] [facility],[place] [address] 08/21/2022 09:16:30 08/21/2022 11:25:03 Active or passive immunization 716926070 Z23 will consider pneumonia shots Adult heal th examination 248138503 Z00.00 doing well overall certainly needs a hernia reduction procedure Deep venou s thrombosis of lower extremity 848149494 I82.409 he is doing great and is now off the xarelto Advance care planning 71 4177053 Z71.89 utd History of actinic keratosis 2100185831 104 Z87.2 will refer to derm [id number] Deuce Reed, [facility] [address] [facility], [facility] [email or web address] [address] 09/03/2023 13:17:23 09/03/2023 15:24:25 Active or passive immunization 279186855 23 will consider pneumonia shots Adult heal th examination 213801163 Z00.00 doing well overalldis cussed cbd gummies for his arthritis at night will try gino a Hypercholesterolemia 136 03342 E78.00 Hypothyroidism 93523311 E03.9 rechk in tsh Metabolic syndrome X 237 784018 E88.810 Screening for malignant neoplasm of colon 825860442 Z12.11 [id number] Deuce Reed [facility] [address] [facility] [address] 09/08/2024 09:58:52 09/08/2024 12:26:03 Adult health examination 172892925 Z00.00 doing well overalldis cussed cbd gummies for his arthritis at night will try ashwagandh a Screening for cardiovascular system disease 912866555 Z13.6 Screening for malignant neoplasm of colon 641352454 Z12.11 Hypercholesterolemia 136 55287 E78.00 will chk levels Hypothyroidism 62720451 E03.9 rechk in tsh Metabolic syndrome X 237 889267 E88.810 checking lab in detail Bilateral carpal tunnel syndrome 0607739392 6101923 G56.03 Health Concerns Section Related Observation LastModified by Organization Detai ls LastModified Time None Recorded Concern Status LastModified by Organization Details LastModified Time None Recorded Advance Directives Directive None Recorded Payers Insurance Date Sequence Insurance Name Policy Number Policy Fan Covered Member ID Fan Member ID Guarantor Name 09/07/2024 1 [employer] [id number] Kolton Moran [id number] Kolton Moran 05/12/2025 1 [place] [employer] Kolton Moran [id number] Kolton Moran 05/09/2025 2 [place] Kolton Moran [id number] Kolton Moran Notes Date Note Type Note Provider Name and Address Organization Details Recorded Time 01/17/20 22 text/htm l ROS as noted in the HPI here for rechk and is feeling wellno major problemsno cp no sob but does get occ exertional dyspnea up the stairs or puhsin cryptologist in 90 degree heatsleep is fairbowels good no bleeding occ diarrhea no melena reviewed lab in detail as he had stopped the xarelto for 5 days before doing the lab work Deuce Rede, DO [address] [facility], [place], [address], [facility] 01/16/2022 17:08:15 08/22/19 23 text/htm l Annual WellnessReported by PatientSocial/Behavioral HistoryFor diet and nutrition, patient reportshealthy diet. For fracture risk, patient reportsno history of fractures,no recent explained fracture,no sudden unexplained fractures, andno previous musculoskeletal injuries. For physical activity, patient reportsexercises on a regular basis,recent increase in physical activity, andgood physical condition. For additional lifestyle factors, patient reportsno tobacco use,no alcohol intake, andstopped drinking alcohol.Mental Status:For depression risk, patient reportsnever feels sad, empty, or tearful,no loss of interest in activities,no significant changes in weight,no sleep disturbances or insomnia,no agitation,no loss of energy,no feelings of worthlessness or guilt,no thoughts of suicide,no history of depression, andno history of mood disorders.Functional AbilityFor hearing, patient reportsno loss of hearing. For vision, patient reportsno vision problems.now off xareltoROS as noted in the HPI Deuce Reed DO [address] [place] [address], [address], [facility] 08/21/2022 10:08:40 09/03/19 24 text/htm l Annual WellnessReported by PatientSocial/Behavioral HistoryFor diet and nutrition, patient reportshealthy diet. For fracture risk, patient reportsno history of fractures,no recent explained fracture,no sudden unexplained fractures, andno previous musculoskeletal injuries. For physical activity, patient reportsexercises on a regular basis,recent increase in physical activity, andgood physical condition. For additional lifestyle factors, patient reportsno tobacco use,no alcohol intake, andstopped drinking alcohol.Mental Status:For depression risk, patient reportsnever feels sad, empty, or tearful,no loss of interest in activities,no significant changes in weight,no sleep disturbances or insomnia,no agitation,no loss of energy,no feelings of worthlessness or guilt,no thoughts of suicide,no history of depression, andno history of mood disorders.Functional AbilityFor hearing, patient reportsno loss of hearing. For vision, patient reportsno vision problems.ROS as noted in the HPI doing well now off the xarelto and starting asaright arm has been bothering more as of late takes a tylenol pm hs Deuce HorneRoni Reed, DO [address] [place] [address], [address], [facility] 09/03/2023 14:04:46 09/09/19 25 text/htm l Care Management - Acquired HypothyroidismReported by PatientCare ManagementFor medication education, patient reportsunderstands administration,understands effect of concurrent medications,understands missed doses, andunderstands consequences of noncompliance.Interim HistoryFor associated symptoms, patient reportsno abnormal weight gain,no tiredness,no dry skin,no cold intolerance,no constipation,no diarrhea, andno goiter. Care Management - HyperlipidemiaReported by PatientHPIFor control, patient reportsusually well controlled,improving, andat goal. For complications, patient reportsno coronary artery disease,no heart attack,no cardiovascular disease,no pancreatitis, andno stroke. Medicare Annual Wellness VisitReported by PatientSocial/Behavioral HistoryFor diet and nutrition, patient reportshealthy diet. For fracture risk, patient reportsno history of fractures,no recent explained fracture,no sudden unexplained fractures, andno previous musculoskeletal injuries. For physical activity, patient reportsexercises on a regular basis,recent increase in physical activity, andgood physical condition.Mental Status:For depression risk, patient reportsnever feels sad, empty, or tearful,no loss of interest in activities,no significant changes in weight,no sleep disturbances or insomnia,no agitation,no loss of energy,no feelings of worthlessness or guilt,no thoughts of suicide,no history of depression, andno history of mood disorders. For orientation, patient reportsno disorientation to time,no disorientation to date, andno disorientation to place. For concentration and memory, patient reportsno decreased concentrating ability,no memory lapses or loss, anddoes not forget words. For speech/motor difficulties, patient reportsno speech difficulties,no difficulty expressing formulated concepts,no difficulty with fine manipulative tasks,no difficulty writing/copying,no slowed reaction time, anddoes not knock things over when trying to pick them up.Functional AbilityFor hearing, patient reportsno loss of hearing. For vision, patient reportsno vision problems. For activities of daily living, patient reportsable to bathe with limited or no assistance,able to contol urination and bowels,able to dress with limited or no assistance,able to feed self with limited or no assistance,able to get out of chair or bed with limited or no assistance,able to groom with limited or no assistance, andable to toilet with limited or no assistance. For instrumental activities of daily living, patient reportsable to do house work with limited or no assistance,able to grocery shop with limited or no assistance,able to manage medications with limited or no assistance,able to manage money with limited or no assistance,able to prepare meals with limited or no assistance, andable to use the phone with limited or no assistance. For falls risk assessment, patient reportsno frequent falls while walking,no fall in the past year,no fall since last visit, andno dizziness/vertigo. For home safety, patient reportsno unsafe valerie hazzards,no unsafe stairs,no unsafe gas appliances,working smoke/co detectors,wears protective head gear for biking/high velocity,use of seatbelts,practicing 'safer sex',no vision or hearing loss while driving,no fire arms,has hand bars in the bathroom/shower, andgood lighting in the home.ROS as noted in the HPI doing well and is not having any major issues Deuce Reed, DO [address] [facility], [place], [address], [facility] 09/08/2024 11:01:12 05/12/20 25 text/htm l ROS as noted in the HPI has noted onset of pains in both legs and numbness and tingling down both legsrelates that he has fallenno back painhas been ongoing for several months may be more noticeable nowstill active overallfeels he is off balance at times Not Available Not Available Not Available
--- OUTSIDE RECORDS SUMMARY | 2025-05-12 12:19 | XMS_ITS | Encounter Summary ---
Author Organization [facility] Address [address] [facility] [address] [place] [address] Phone Care Team Providers Care Electronic Communications Technician Name Role Phone Deuce Aranda Primary Care Provider [phone] JassiDeuce sneed Unavailable Encounter Details Date Type Department Care Team (Late st Contact Info) Description 08/21/2018 Ancillary Orders Virtual Department [address] [place] [address] Lela Schultz CNP [address] [place] [address] [email or web address] Hernia of anterior abdominal wall; Ventral hernia without obstruction or gangrene Social History Tobacco Use Types Packs/Day Years [...] documented as of this encounter Results * US ABDOMEN LIMITED HERNIA (08/21/2018 9:22 AM EST) Anatomical Region Laterality Modality Abdomen Ultrasound 08/21/2018 9:20 AM EST Impressions 08/21/2018 9:37 AM EST Probable left lower abdominal wall hernia. A limited CT the abdominal wall is recommended as findings are not definitive. POS [id number] Narrative 08/21/2018 9:37 AM EST COMPARISON: None. LIMITED ABDOMEN ULTRASOUND FINDINGS: Imaging was obtained of the lower left abdominal wall. There is suggestion of a a small defect in the lower left abdominal wall with protruding peristalsing bowel with Valsalva. Procedure Note Shannan Espino MD - 08/21/2018 COMPARISON: None. LIMITED ABDOMEN ULTRASOUND FINDINGS: Imaging was obtained of the lower left abdominal wall. There issuggestion of a a small defect in the lower left abdominal wall withprotruding peristalsing bowel with Valsalva. IMPRESSION: Probable left lower abdominal wall hernia. A limited CT the abdominalwall is recommended as findings are not definitive. POS [id number] us Lela H Antoine INFECTION PREVENTION PRACTITIONER IMG US ABDOMEN Final Resul t documented in this encounter Visit Diagnoses Diagnosis Hernia of anterior abdominal wall Ventral hernia without obstruction or gangrene Unspecified ventral hernia without mention of obstruction or gangrene Hernia of anterior abdominal wall Ventral hernia without obstruction or gangrene Unspecified ventral hernia without mention of obstruction or gangrene documented in this encounter Care Teams Electronic Communications Technician Relationship Specialty Start Date End Date Deuce Aranda DO [email or web address] PCP - General Internal Medicine 08/29/17 Deuce Aranda DO [address] [place] [address] [email or web address] Insurance Assigned Provider 11/21/19 11/20/20 documented as of this encounter Additional Source Comments The information contained in this document represents components of the legal health record. It is not the complete legal health record.[facility]
--- OUTSIDE RECORDS SUMMARY | 2025-05-12 12:19 | XMS_ITS | Encounter Summary ---
Author Organization [facility] Address [address] [facility] [address] [place] [address] Phone Care Team Providers Care Telephone Clerks Supervisor Name Role Phone Deuce Aranda DO Primary Care Provider Encounter Details Date Type Department Care Team (Late st Contact Info) Description 07/28/2021 Transcribe Orders Virtual Department [address] [place] [address] Deuce Aranda DO [address] [facility] [place] [address] [place] [address] [email or web address] Other lesions of median nerve, right upper limb (Primary Dx) Social History Tobacco Use Types [...] * XR WRIST 3 OR MORE VIEWS (RIGHT) (08/07/2021 9:10 AM EST) Anatomical Region Laterality Modality Wrist Left Computed Radiogr aphy 08/07/2021 12:1 2 PM EST Impressions 08/07/2021 12:17 PM EST 1.No fracture or dislocation. 2.Degenerative changes at the qtphqahj-kimscsafw-ibkftdkwf joint. Narrative 08/07/2021 12:17 PM EST XR WRIST 3 OR MORE VIEWS (RIGHT) COMPARISON: Contralateral wrist obtained concurrently. FINDINGS: No fracture. Normal alignment. Degenerative changes at the dbsauyoc-ltmmaftvf-fcqlolnyy joint with joint space narrowing and subchondral sclerotic changes. No soft tissue swelling. Procedure Note Dawood Lozano MD - 08/07/2021 XR WRIST 3 OR MORE VIEWS (RIGHT) COMPARISON: Contralateral wrist obtained concurrently. FINDINGS: No fracture. Normal alignment. Degenerative changes at kveorhysrhd-bdodmzllh-hipysfazv joint with joint space narrowing andsubchondral sclerotic changes. No soft tissue swelling. IMPRESSION: 1.No fracture or dislocation. 2.Degenerative changes at the piumvspp-sykbxbytk-seevnewdv joint. Deuce Aranda DO IMG XR UPPER EXTREMITY Final Res ult documented in this encounter Visit Diagnoses Diagnosis Other lesions of median nerve, right upper limb- Primary Other lesions of median nerve, right upper limb documented in this encounter Care Teams Telephone Clerks Supervisor Relationship Specialty Start Date End Date Deuce Aranda DO [email or web address] PCP - General Internal Medicine 08/29/17 documented as of this encounter Additional Source Comments The information contained in this document represents components of the legal health record. It is not the complete legal health record.[facility]
--- OUTSIDE RECORDS SUMMARY | 2025-05-12 12:19 | XMS_ITS | Encounter Summary ---
Author Organization [facility] Address [address] [facility] [address] [place] [address] Phone Care Team Providers Care Computer Networking Instructor Adjunct Name Role Phone Deuce Aranda DO Primary Care Provider [phone] Deuce Aranda DO Unavailable Encounter Details Date Type Department Care Team (Late st Contact Info) Description 11/24/2019 Procedure Pass [facility] [place], [place] [address] [facility], [address], [address] [place] [address] Social History Tobacco Use Types Packs/Day Years [...] on filedocumented in this encounter Care Teams Computer Networking Instructor Adjunct Relationship Specialty Start Date End Date Deuce Aranda DO PCP - General Internal Medicine 08/29/17 Deuce Aranda DO [address] [place] [address] [email or web address] Insurance Assigned Provider 11/21/19 11/20/20 documented as of this encounter Additional Source Comments The information contained in this document represents components of the legal health record. It is not the complete legal health record.[facility]
--- OUTSIDE RECORDS SUMMARY | 2025-05-12 12:19 | XMS_ITS | Encounter Summary ---
Author Organization [facility] Address [address] [address] Phone Care Team Providers Care Medical Logistics Specialist Name Role Phone Deuce Aranda DO Primary Care Provider [phone] Deuce Aranda DO Unavailable Encounter Details Date Type Department Care Team (Late st Contact Info) Description 08/30/2017 Procedure Pass [facility], [address] [address] Social History Tobacco Use Types Packs/Day Years [...] on filedocumented in this encounter Care Teams Medical Logistics Specialist Relationship Specialty Start Date End Date Deuce Aranda DO PCP - General Internal Medicine 08/29/17 Deuce Aranda DO [address] [place] [address] [place] [address] (work) [email or web address] Insurance Assigned Provider 11/21/19 11/20/20 documented as of this encounter Additional Source Comments The information contained in this document represents components of the legal health record. It is not the complete legal health record.[facility]
--- OUTSIDE RECORDS SUMMARY | 2025-05-12 12:19 | XMS_ITS | Encounter Summary ---
Author Organization [facility] Address [address] [facility] [address] [place] [address] Phone Care Team Providers Care Electric Freight Car Operator Name Role Phone Deuce Aranda DO Primary Care Provider [phone] JassiDeuce sneed DO Unavailable Encounter Details Date Type Department Care Team (Latest Contact Info) Description 04/15/2018 Transcribe Orders [facility] [address] [phone] Lela Schultz CNP [address] [place] [address] [phone] [email or web address] Pure hypercholesterolemia (Primary Dx); Myxedema heart disease Social History Tobacco Use Types Packs/Day Years [...] documented as of this encounter Results * (ABNORMAL) TSH with reflex (04/15/2018 7:46 AM EDT) TSH 4.33(H) 0.27 - 4.20 uIU/mL [facility] Blood 04/15/2018 7:46 AM EDT 04/15/2018 8:23 AM EDT us Lela Schultz BUILDING ATTENDANT LAB BLOOD BKR ORDERABLES Fi nal Result [facility] [address] [place] [address] * (ABNORMAL) CBC and differential (04/15/2018 7:46 AM EDT) WBC 6.48 3.40 - 11.20 K/uL [facility] RBC 4.55 4.50 - 5.50 M/uL [facility] HGB 12.3(L) 13.0 - 17.0 g/dL [facility] HCT 40.0 40.0 - 51.0 % [facility] PLT 242 130 - 400 K/uL [facility] MCV 87.9 79.0 - 98.0 fL [facility] MCH 27.0 27.0 - 34.8 pg [facility] MCHC 30.8(L) 31.5 - 36.0 g/dL [facility] RDW 15.3(H) 10.8 - 14.6 % [facility] MPV 12.5(H) 9.4 - 12.4 fl [facility] NRBC 0.00 /100 WBCs [facility] ABSOLUTE NRBC 0.00 K/uL [facility] DIFF METHOD Auto [facility] NEUTS 65.9 45.30 - 77.70 % [facility] LYMPHS 15.6 12.30 - 39.70 % [facility] MONOS 11.9 4.10 - 12.80 % [facility] EOS 5.1 0 - 7.2 % [facility] BASOS 0.9 0 - 2.80 % [facility] Granulocytes, immature (%) 0.6 0.0 - 0.9 % [facility] ABSOLUTE NEUTS 4.27 1.40 - 7.70 K/uL [facility] ABSOLUTE LYMPHS 1.01 0.60 - 3.20 K/uL [facility] ABSOLUTE MONOS 0.77(H) 0.11 - 0.59 K/uL [facility] ABSOLUTE EOS 0.33 0.01 - 0.50 K/uL [facility] ABSOLUTE BASOS 0.06 0.00 - 0.08 K/uL [facility] Granulocytes, immature 0.04 0.00 - 0.05 K/uL [facility] Blood 04/15/2018 7:46 AM EDT 04/15/2018 8:23 AM EDT us Lela Schultz BUILDING ATTENDANT LAB BLOOD BKR ORDERABLES Fi nal Result [facility] [address] [place], [place] [phone] * (ABNORMAL) Comprehensive metabolic panel (04/15/2018 7:46 AM EDT) SODIUM 143 133 - 146 mmol/L [facility] POTASSIUM 5.2(H) 3.3 - 5.1 mmol/L [facility] CHLORIDE 105 96 - 108 mmol/L [facility] CO2 25 21 - 35 mmol/L [facility] BUN 11 6 - 19 mg/dL [facility] CREATININE 1.00 0.5 - 1.5 mg/dL [facility] GLUCOSE 91 70 - 99 mg/dL [facility] ALBUMIN 4.3 3.9 - 4.8 g/dL [facility] TOTAL PROTEIN 7.2 6.5 - 8.0 g/dL [facility] CALCIUM 9.4 8.4 - 10.3 mg/dL [facility] ALKALINE PHOSPHATASE 65 39 - 117 U/L [facility] TOTAL BILIRUBIN 0.2 0.0 - 1.2 mg/dL [facility] AST 22 0 - 37 U/L [facility] ALT 16 0 - 40 U/L [facility] GLOBULIN 2.9 1 - 4.8 g/dL [facility] EGFR 81 >59 mL/min/1.7 3m2 [facility] Comment:If patient is black, multiply result by 1.159. Estimated glomerular filtration rate calculated using the CKD-EPI equation. ANION GAP 18 10 - 20 mmol/L [facility] Blood 04/15/2018 7:46 AM EDT 04/15/2018 8:23 AM EDT us Lela Powell Antoine BUILDING ATTENDANT LAB BLOOD BKR ORDERABLES Fi nal Result Performing Organization Address City/[facility]/ZIP Co de Phone Number [address] [address] * (ABNORMAL) Lipid panel (04/15/2018 7:46 AM EDT) HDL 37 mg/dL [facility] Comment: Interpretation: Risk Level Males Decreased >45 mg/dL Average 40-45 mg/dL Increased <40 mg/dL CHOLESTEROL 223 0 - 240 mg/dL [facility] TRIGLYCERIDES 221(H) 30 - 160 mg/dL [facility] LDL 142(H) 50 - 129 mg/dL [facility] Comment: LDL levels in terms of risk for coronary heart disease: <100 mg/dL: Optimal 100-129 mg/dL: Near or above optimal 130-159 mg/dL: Borderline high 160-189 mg/dL: High >190 mg/dL: Very High CARDIAC RISK RATIO 6.0(H) 3.4 - 5.0 C [facility] Blood 04/15/2018 7:46 AM EDT 04/15/2018 8:23 AM EDT us Lela Powell Antoine BUILDING ATTENDANT LAB BLOOD BKR ORDERABLES Fi nal Result Performing Organization Address City/[facility]/ZIP Co de Phone Number [address] [address] documented in this encounter Visit Diagnoses Diagnosis Pure hypercholesterolemia- Primary Myxedema heart disease Unspecified hypothyroidism documented in this encounter Care Teams Electric Freight Car Operator Relationship Specialty Start Date End Date Deuce Aranda DO PCP - General Internal Medicine 08/29/17 Deuce Aranda DO [address] [place] [address] Insurance Assigned Provider 11/21/19 11/20/20 documented as of this encounter Additional Source Comments The information contained in this document represents components of the legal health record. It is not the complete legal health record.[facility]
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
--- OUTSIDE RECORDS SUMMARY | 2025-05-12 12:19 | XMS_ITS | Encounter Summary ---
Author Organization [facility] Address [address] [facility] [address] [place] [address] Phone Care Team Providers Care Cable Cutter And Swager Name Role Phone Deuce Aranda DO Primary Care Provider [phone] JassiDeuce sneed Unavailable Encounter Details Date Type Department Care Team (Latest Contact Info) Description 09/30/2018 Transcribe Orders [address] [address] Mohan Dye MD, ALICE [address] [place] [address] [phone] [email or web address] Routine general medical examination at a health care facility (Primary Dx) Social History Tobacco Use Types Packs/Day Years Used Date Smoking Tobacco: Never Smokeless Tobacco: Never Sex and Gender Information Value Date Recorded Sex Assigned at Male 11/14/2019 12:39 PM EDT Legal Sex Male 9:53 PM EDT Gender Identity Male 11/14/2019 12:39 PM EDT Sexual Orientation Straight 11/14/2019 12 :39 PM EDT documented as of this encounter Plan of Treatment Not on file documented as of this encounter Results * Creatinine/eGFR (09/30/2018 7:59 AM EDT) CREATININE 1.00 0.5 - 1.5 mg/dL [facility] EGFR 81 >59 mL/min/1.7 3m2 [facility] Comment:If patient is black, multiply result by 1.159. Estimated glomerular filtration rate calculated using the CKD-EPI equation. Blood 09/30/2018 7:59 AM EDT 09/30/2018 8:30 AM EDT us Mohan Dye MD, ALICE LAB BLOOD BKR ORDERAB LES Final Result Performing Organization Address City/[facility]/ZIP Co de Phone Number [address] [address] * BUN (09/30/2018 7:59 AM EDT) BUN 16 6 - 19 mg/dL [facility] Blood 09/30/2018 7:59 AM EDT 09/30/2018 8:30 AM EDT us Mohan Dye MD, ALICE LAB BLOOD BKR ORDERAB LES Final Result Performing Organization Address City/[facility] Co de Phone Number [address] [address] documented in this encounter Visit Diagnoses Diagnosis Routine general medical examination at a health care facility- Primary documented in this encounter Care Teams Cable Cutter And Swager Relationship Specialty Start Date End Date Deuce Aranda DO PCP - General Internal Medicine 08/29/17 Deuce Aranda DO [address] [place] [address] Insurance Assigned Provider 11/21/19 11/20/20 documented as of this encounter Additional Source Comments The information contained in this document represents components of the legal health record. It is not the complete legal health record.[facility]
--- OUTSIDE RECORDS SUMMARY | 2025-05-12 12:19 | XMS_ITS | Encounter Summary ---
Author Organization [facility] Address [address] [address] Phone Care Team Providers Care Donor Services Manager Name Role Phone RosiDeuce Primary Care Provider [phone] Deuce Aranda Ozzie Unavailable Reason for Referral * MRI/CAT Scan - Closed Specialty Diagnoses / Procedures Referred By Alvaro campos Referred To Contact Radiology Diagnoses Abdominal pain, unspecified abdominal location Procedures CT Abdomen/Pelvis Lela Schultz CNP Phone: tel: fax: mailto:[email or web address] Referral ID Status Reason Start Date Expiration Date Visits Re quested Visits Authorized [id number] Closed 08/21/2018 08/21/2019 1 1 Encounter Details Date Type Department Care Team (Late st Contact Info) Description 08/21/2018 Ancillary Orders Virtual Department [address] [place] [address] Lela Schultz CNP [address] [place] [phone] [email or web address] Abdominal pain, unspecified abdominal location Social History Tobacco Use Types Packs/Day Years [...] documented as of this encounter Results * CT ABDOMEN/PELVIS WITH CONTRAST (08/28/2018 9:12 AM EDT) Anatomical Region Laterality Modality Abdomen, Pelvis Computed Tomogra phy 08/28/2018 11:4 7 AM EDT Impressions 08/28/2018 12:05 PM EDT 1. Bulging of intraabdominal contents at the level of large area of thinned abdominal wall musculature in left lower quadrant. 2. Colonic diverticulosis. 3. Additional chronic findings as described above. TOTAL CTDIvol: 8.0 mGy POS - [id number] Narrative 08/28/2018 12:05 PM EDT EXAM: CT ABDOMEN/PELVIS WITH CONTRAST CT OF ABDOMEN AND PELVIS WITH INTRAVENOUS CONTRAST COMPARISON: Abdominal ultrasound on August 21, 2018 describes left lower abdominal wall hernia. INDICATION: Abdominal pain, unspecified abdominal location TECHNIQUE: CT scan of the abdomen and pelvis was performed following the intravenous administration of 100 cc of Omnipaque 240 and oral contrast. Coronal and sagittal reformatted images were generated. Automated exposure control utilized. FINDINGS: LOWER THORAX: No lung consolidation. No pleural effusion. HEPATOBILIARY: Liver is normal in size, contour and density. No focal hepatic lesions. No extra- or intrahepatic ductal dilatation. Gallbladder is not distended. No calcified gallstones. SPLEEN: No focal lesion. PANCREAS: Unremarkable. ADRENAL GLANDS: No mass or nodule. KIDNEYS AND URETERS: The kidneys enhance symmetrically. Multiple round hypodense lesions in both kidneys likely represent cysts. Large cortical defect in the upper pole of the left kidney; correlate with prior history of surgery. No hydronephrosis, hydroureter or mass. STOMACH/GI TRACT: Oral contrast reaches the ascending colon without obstruction. The stomach is physiologically distended and filled with oral contrast and gas. Bowel loops are normal in caliber.Normal appendix visualized on coronal 6:41. Moderate amount of fecal load within the colonic loops. Numerous diverticula along the descending and sigmoid colons. PELVIC ORGANS/BLADDER: Urinary bladder is partially distended and grossly unremarkable. Prostate is unremarkable. PERITONEUM AND RETROPERITONEUM: No free fluid, fluid collection or free air. LYMPH NODES: No enlarged retroperitoneal, mesenteric or pelvic lymph nodes. VESSELS: Atherosclerotic disease along normal-caliber abdominal aorta and iliac arteries. Inferior vena cava is unremarkable, and contains an inferior vena cava filter. BONES AND SOFT TISSUES: There is thinning of the abdominal wall musculature in the left lower quadrant resulting in protrusion of the intra-abdominal contents, including bowel loops and intra-abdominal fat. Is status post posterior fusion hardware placement at L4- L5. Prominent endplate sclerotic changes at L4-L5 and T12-L1. Procedure Note Dawood Lozano MD - 08/28/2018 EXAM: CT ABDOMEN/PELVIS WITH CONTRAST CT OF ABDOMEN AND PELVIS WITH INTRAVENOUS CONTRAST COMPARISON: Abdominal ultrasound on August 21, 2018 describes left lowerabdominal wall hernia. INDICATION: Abdominal pain, unspecified abdominal location TECHNIQUE: CT scan of the abdomen and pelvis was performed following theintravenous administration of 100 cc of Omnipaque 240 and oral contrast.Coronal and sagittal reformatted images were generated. Automatedexposure control utilized. FINDINGS: LOWER THORAX: No lung consolidation. No pleural effusion. HEPATOBILIARY: Liver is normal in size, contour and density. No focalhepatic lesions. No extra- or intrahepatic ductal dilatation.Gallbladder is not distended. No calcified gallstones. SPLEEN: No focal lesion. PANCREAS: Unremarkable. ADRENAL GLANDS: No mass or nodule. KIDNEYS AND URETERS: The kidneys enhance symmetrically. Multiple roundhypodense lesions in both kidneys likely represent cysts. Large corticaldefect in the upper pole of the left kidney; correlate with prior historyof surgery. No hydronephrosis, hydroureter or mass. STOMACH/GI TRACT: Oral contrast reaches the ascending colon withoutobstruction. The stomach is physiologically distended and filled withoral contrast and gas. Bowel loops are normal in caliber.Normal appendixvisualized on coronal 6:41. Moderate amount of fecal load within thecolonic loops. Numerous diverticula along the descending and sigmoidcolons. PELVIC ORGANS/BLADDER: Urinary bladder is partially distended and grosslyunremarkable. Prostate is unremarkable. PERITONEUM AND RETROPERITONEUM: No free fluid, fluid collection or freeair. LYMPH NODES: No enlarged retroperitoneal, mesenteric or pelvic lymphnodes. VESSELS: Atherosclerotic disease along normal-caliber abdominal aorta andiliac arteries. Inferior vena cava is unremarkable, and contains aninferior vena cava filter. BONES AND SOFT TISSUES: There is thinning of the abdominal wallmusculature in the left lower quadrant resulting in protrusion of theintra-abdominal contents, including bowel loops and intra-abdominal fat.Is status post posterior fusion hardware placement at L4-L5. Prominentendplate sclerotic changes at L4-L5 and T12-L1. IMPRESSION: 1. Bulging of intraabdominal contents at the level of large area ofthinned abdominal wall musculature in left lower quadrant. 2. Colonic diverticulosis. 3. Additional chronic findings as described above. TOTAL CTDIvol: 8.0 mGy POS - [id number] Lela Schultz PATTERN DRUM MAKER IMG CT ABD/PELVIS Final Res ult documented in this encounter Visit Diagnoses Diagnosis Abdominal pain, unspecified abdominal location Abdominal pain, unspecified abdominal location documented in this encounter Care Teams Donor Services Manager Relationship Specialty Start Date End Date Deuce Aranda DO PCP - General Internal Medicine 08/29/17 Deuce Aranda DO [address] [place] [address] Insurance Assigned Provider 11/21/19 11/20/20 documented as of this encounter Additional Source Comments The information contained in this document represents components of the legal health record. It is not the complete legal health record.[facility]
--- OUTSIDE RECORDS SUMMARY | 2025-05-12 12:19 | XMS_ITS | Encounter Summary ---
Author Organization [facility] Address [address] [facility] [address] [place] [address] Phone Care Team Providers Care Terrazzo Worker Name Role Phone Deuce Aranda DO Primary Care Provider [phone] Deuce Aranda DO Unavailable Encounter Details Date Type Department Care Team (Late st Contact Info) Description 11/24/2019 Procedure Pass [facility] [address] [place] [phone] Social History Tobacco Use Types Packs/Day [...] on filedocumented in this encounter Care Teams Terrazzo Worker Relationship Specialty Start Date End Date Deuce Aranda DO [email or web address] PCP - General Internal Medicine 08/29/17 Deuce Aranda DO [address] [place] [address] [email or web address] Insurance Assigned Provider 11/21/19 11/20/20 documented as of this encounter Additional Source Comments The information contained in this document represents components of the legal health record. It is not the complete legal health record.[facility]
--- OUTSIDE RECORDS SUMMARY | 2025-05-12 12:19 | XMS_ITS | Encounter Summary ---
Author Organization [facility] Address [address] [place] [address] Phone Care Team Providers Care Interior Design Professional Name Role Phone Deuce Aranda DO Primary Care Provider [phone] JassiDeuce sneed DO Unavailable Encounter Details Date Type Department Care Team (Latest Contact Info) Description 08/29/2017 Transcribe Orders [facility]le[facility] Main [address] [place] [address] Lela Schultz, SANDY [address] [place] [address] [email or web address] Pain of lower extremity, unspecified laterality (Primary Dx); Hypothyroidism, unspecified type Social History Tobacco Use Types Packs/Day Years [...] documented as of this encounter Results * TSH (08/29/2017 8:08 AM EDT) TSH 3.47 0.27 - 4.20 uIU/mL [facility] Blood 08/29/2017 8:08 AM EDT 08/29/2017 8:12 AM EDT us Lela H Sophyrhondajamar DITCH TENDER LAB BLOOD BKR ORDERABLES Fi nal Result Performing Organization Address [facility] Co de Phone Number [address] [address] * Sedimentation rate (ESR) (08/29/2017 8:08 AM EDT) ESR 1 0 - 20 mm/h [facility] Blood 08/29/2017 8:08 AM EDT 08/29/2017 8:12 AM EDT us Lela H Antoine DITCH TENDER LAB BLOOD BKR ORDERABLES Fi nal Result Performing Organization Address [facility] de Phone Number [address] [address] * Free T4 (08/29/2017 8:08 AM EDT) FREE T4 1.2 0.9 - 1.7 ng/dL [facility] Blood 08/29/2017 8:08 AM EDT 08/29/2017 8:12 AM EDT us Lela H Antoine DITCH TENDER LAB BLOOD BKR ORDERABLES Fi nal Result Performing Organization Address [facility] Co de Phone Number [address] [address] * CPK (creatine kinase) (08/29/2017 8:08 AM EDT) CREATINE KINASE 107 35 - 232 U/L [facility] Blood 08/29/2017 8:08 AM EDT 08/29/2017 8:12 AM EDT us Lela Powell Sophyrhondajamar DITCH TENDER LAB BLOOD BKR ORDERABLES Fi nal Result [facility] [address] [place] [address] documented in this encounter Visit Diagnoses Diagnosis Pain of lower extremity, unspecified laterality- Primary Hypothyroidism, unspecified type documented in this encounter Care Teams Interior Design Professional Relationship Specialty Start Date End Date Deuce Aranda DO [email or web address] PCP - General Internal Medicine 08/29/17 Deuce Aranda DO [address] [place] [address] [email or web address] Insurance Assigned Provider 11/21/19 11/20/20 documented as of this encounter Additional Source Comments The information contained in this document represents components of the legal health record. It is not the complete legal health record.[facility]
--- OUTSIDE RECORDS SUMMARY | 2025-05-12 12:19 | XMS_ITS | Encounter Summary ---
Author Organization [facility] Address [address] [place] [address] Phone Care Team Providers Care Printing Sales Representative Name Role Phone Deuce Aranda DO Primary Care Provider [phone] Deuce Aranda DO Unavailable Encounter Details Date Type Department Care Team (Late st Contact Info) Description 08/20/2018 Ancillary Orders Virtual Department [address] [place] [address] Lela Schultz CNP [address] [place] [address] [email or web address] Hernia of anterior abdominal wall; Ventral hernia [...] as of this encounter Visit Diagnoses Diagnosis Hernia of anterior abdominal wall Ventral hernia without obstruction or gangrene Unspecified ventral hernia without mention of obstruction or gangrene documented in this encounter Care Teams Printing Sales Representative Relationship Specialty Start Date End Date Deuce Aranda DO [email or web address] PCP - General Internal Medicine 08/29/17 Deuce Aranda DO [address] [place] [address] [email or web address] Insurance Assigned Provider 11/21/19 11/20/20 documented as of this encounter Additional Source Comments The information contained in this document represents components of the legal health record. It is not the complete legal health record.[facility]
--- OUTSIDE RECORDS SUMMARY | 2025-05-12 12:19 | XMS_ITS | Encounter Summary ---
Author Organization [facility] Address [address] [address] Phone Care Team Providers Care Tire Wrapper Name Role Phone Deuce Aranda DO Primary Care Provider [phone] Deuce Aranda DO Unavailable Reason for Referral * Physical Therapy (Routine) - Closed Specialty Diagnoses / Procedures Referred By Alvaro campos Referred To Contact Physical Therapy Diagnoses Encounter for rehabilitation System, Provider Not In, PhD [id number] [place] [address] Phone: tel: Referral ID Status Reason Start Date Expiration Date Visits Re quested Visits Authorized [id number] Closed 03/13/2018 06/16/2019 99 [phone] Encounter Details Date Type Department Care Team (Late st Contact Info) Description 03/06/2018 Transcribe Orders [facility] [address] [place] [id number] Deuce Aranda DO [address] [place] [address] [email or web address] Encounter for rehabilitation (Primary Dx) Social History Tobacco Use Types Packs/Day Years Used Date Smoking Tobacco: Never Assessed Sex and Gender Information Value Date Recorded Sex Assigned at Male 11/14/2019 12:39 PM EDT Legal Sex Male 9:53 PM EDT Gender Identity Male 11/14/2019 12:39 PM EDT Sexual Orientation Straight 11/14/2019 12 :39 PM EDT documented as of this encounter Plan of Treatment Scheduled Referrals Name Type Priority Associated Diagnoses Orde r Schedule Ambulatory referral to [facility] Physical Therapy Outpatient Referral Routine Encounter for rehabilitation Ordered: 03/06/2018 documented as of this encounter Visit Diagnoses Diagnosis Encounter for rehabilitation- Primary documented in this encounter Care Teams Tire Wrapper Relationship Specialty Start Date End Date Deuce Aranda DO [email or web address] PCP - General Internal Medicine 08/29/17 Deuce Aranda DO [address] [place] [address] Insurance Assigned Provider 11/21/19 11/20/20 documented as of this encounter Additional Source Comments The information contained in this document represents components of the legal health record. It is not the complete legal health record.[facility]
[2025-05-12 13:38] LABS: MANUAL DIFF FLAG NO
[2025-05-12 13:52] LABS: Hematocrit 47.0 % (42.0-52.0); Hemoglobin 15.6 g/dl (14.0-18.0); Imm Gran Abs Auto 0.04 X10*3/uL (0.00-0.03); Imm Gran Pct Auto 0.5 % (0.0-0.4); Lymphocytes Absolute Auto 1.0 X10*3/uL (1.2-4.9); Mean Corpuscular HGB Conc 33.2 g/dl (31.0-36.0); Mean Corpuscular Hemoglobin 29.8 pg (27.0-33.0); Mean Corpuscular Volume 89.7 fL (80.0-98.0); NRBC Abs Auto 0.000 X10*3/uL (0.0-0.012); NRBC Pct Auto 0.0 /100WBC (0.0-0.2); Platelet Count 179 X10*3/uL (160-400); Red Blood Count 5.24 X10*6/uL (4.60-5.80); White Blood Count 7.6 X10*3/uL (4.8-10.8)
[2025-05-12 15:11] LABS: Alanine Aminotransferase 27 U/L (0-40); Albumin Level 4.7 g/dL (3.5-5.0); Alkaline Phosphatase 71 U/L (39-117); Anion Gap 11 (12-20); Aspartate Amino Transferase 27 U/L (5-37); Blood Urea Nitrogen 16 mg/dL (9-16); Calcium 9.6 mg/dL (8.4-10.2); Carbon Dioxide 28 mmol/L (22-29); Chloride 108 mmol/L (96-108); Estimated Glomerular Filt Rate > 60; Magnesium 2.3 mg/dL (1.6-2.6); Potassium 4.7 mmol/L (3.3-5.1); Sodium 142 mmol/L (135-145); Total Protein 7.1 g/dL (6.5-8.0)
[2025-05-12 15:13] LABS: Folate 18.3 ng/mL (> or = 4.0); Vitamin B12 398 pg/mL (200-900)
[2025-05-12 15:34] LABS: Thyroid Stimulating Hormone 1.96 uIU/mL (0.32-4.0)
== END 2025-05-12 10:24 | disposition home or self-care (01) ==
LOC: HO.MANLDS 10:23
PROVIDERS: Visit Provider Internal Medicine
DX: R29.898 Other symptoms and signs involving the musculoskeletal system (principal); E03.9 Hypothyroidism, unspecified
CPT/HCPCS: 36415; 80053; 82550; 82607; 82746; 83735; 84443; 85025; 85652; 86140